=== PATIENT | female | born 1985 | race Caucasian/White ===

== ENCOUNTER 2019-04-01 06:57 | Emergency (ER) | payer OTHER ==
[2019-04-01] MEDS ORDERED: cefTRIAXone VIAL(*) 1,000 MG VIAL IM ONE (07:13)
[2019-04-01] MEDS ORDERED: Lidocaine 1% MPF ** 5 ML VIAL IM ONE (07:13)
[2019-04-01] MEDS ORDERED: Dexamethasone IV* 4 MG/ML 1 ML (4 MG) IM ONE (07:14)
--- NOTE | 2019-04-01 07:17 | ED ---
Throat Pain/Nasal Congestion - HPI Summary HPI Summary: This pt is a 33 y/o [place] [facility] [place]. She reports she was weak vocal cords if she talks a lot and was at [employer] over the weekend talking a lot to her friends. Pt states she went to Urgent Care yesterday where she tested positive for strep throat and was started on Amoxicillin 875 mg twice a day. She has taken 2 doses so far with no improvement. She reports she has right sided neck swelling and feels swelling in her throat. Pt states she kept waking up at night choking up on phlegm secondary to swelling. Additionally she has been having difficulty swallowing pills secondary to pain. Pt notes she has jaw pain as well. Per triage note, pt has been running a fever at home and has had body aches. Denies nausea of vomiting. She has hx of peritonsillar abscess and states current symptoms feel like this is starting. Last time she had peritonsillar abscess she was not diagnosed with strep throat. Pt reports she still has a baby and is still nursing. - History of Current Complaint Chief Complaint: EDThroatPain Time Seen by Provider: 04/01/19 07:05 Hx Obtained From: Patient Onset/Duration: Lasting Days, Still Present Severity: Moderate Associated Signs And Symptoms: Positive: Dysphagia Cough: None Related History: Other (Noted In Comments) - similar symptoms to past peritonsillar abscess - Allergies/Home Medications Allergies/Adverse Reactions: Allergies Allergy/AdvReac Type Severity Reaction Status Date / Time No Known Allergies Allergy Verified 07/11/13 11:38 PMH/Surg Hx/FS Hx/Imm Hx Endocrine/Hematology History: Denies: Hx Diabetes Cardiovascular History: Denies: Hx Hypertension Infectious Disease History: No Infectious Disease History: Denies: Traveled Outside the [place] in Last 30 Days - Family History Known Family History: Positive: Hypertension - mother Family History: father with lung CA - Social History Alcohol Use: Occasionally Substance Use Type: Reports: None Smoking Status (MU): Never Smoked Tobacco Review of Systems Positive: Fever - at home ENT: Other - POSITIVE: jaw pain, swelling in her throat, swelling on right side of neck. Positive: Sore Throat Negative: Vomiting, Nausea Positive: Myalgia All Other Systems Reviewed And Are Negative: Yes Physical Exam - Summary Physical Exam Summary: Constitutional: Well-developed, Well-nourished, Alert. (-) Distressed Skin: Warm, Dry HENT: Normocephalic; Atraumatic. She has right anterior cervical lymphadenopathy that is tender. She has peritonsillar edema. It does not affect the uvula, the uvula has not moved passed the midline. The left side is normal. Patient is able to maintain her secretions and is able to swallow her secretions. She does not have hot potato voice or muffled voice. Eyes: Conjunctiva normal Neck: Musculoskeletal ROM normal neck. (-) JVD, (-) Stridor, (-) Tracheal deviation Cardio: Rhythm regular, rate normal, Heart sounds normal; Intact distal pulses; The pedal pulses are 2+ and symmetric. Radial pulses are 2+ and symmetric. (-) Murmur Pulmonary/Chest wall: Effort normal. (-) Respiratory distress, (-) Wheezes, (-) Rales Abd: Soft, (-) tenderness, (-) Distension, (-) Guarding, (-) Rebound Musculoskeletal: (-) Edema Lymph: (-) Cervical adenopathy Neuro: Alert, Oriented x3 Psych: Mood and affect Normal Triage Information Reviewed: Yes Vital Signs On Initial Exam: Initial Vitals Temp Pulse Resp BP Pulse Ox 97.5 F 86 18 138/83 96 04/01/19 07:00 04/01/19 07:00 04/01/19 07:00 04/01/19 07:00 04/01/19 07:00 Vital Signs Reviewed: Yes Diagnostics - Vital Signs Vital Signs Temp Pulse Resp BP Pulse Ox 04/01/19 07:00 97.5 F 86 18 138/83 96 - Laboratory Lab Statement: Any lab studies that have been ordered have been reviewed, and results considered in the medical decision making process. Re-Evaluation - Re-Evaluation First Eval Re-Evaluation Time: 07:45 Comment: Reviewed discharge plan and follow up with Dr. Stovall. Discussed new medication prescribed. EENT Course/Dx - Course Assessment/Plan: Pt is a 33 y/o female, with hx of peritonsillar abscess, presenting to [facility] c/o sore throat since 03/29/19. Pt states she went to Urgent Care yesterday where she tested positive for strep throat and was started on Amoxicillin 875 mg twice a day. She has taken 2 doses so far with no improvement. On physical exam, pt has right anterior cervical lymphadenopathy that is tender. She has peritonsillar edema. It does not affect the uvula, the uvula has not moved passed the midline. The left side is normal. Patient is able to maintain her secretions and is able to swallow her secretions. She does not have hot potato voice or muffled voice. In the ED course the pt received 1 gram IM of Rocephin, 10 mg IM Decadron, lidocaine. Discussed the case with Dr. Stovall, ENT, who will see the patient in his office on Tuesday 04/03 or 04/04. Patient was discharged home with a prescription for Augmentin. - Diagnoses Provider Diagnoses: Peritonsillar abscess, Strep throat - Provider Notifications Discussed Care Of Patient With: Xavier Stovall - ENT Time Discussed With Above Provider: 07:22 Instructed by Provider To: Other - Dr. Stovall will see the patient in his office Monday or . Discharge - Sign-Out/Discharge Documenting (check all that apply): Patient Departure - Discharge home Patient Received Moderate/Deep Sedation with Procedure: No - Discharge Plan Condition: Stable Disposition: HOME Prescriptions: Amoxicillin/Clavulanate TAB* [Augmentin TAB 875*] 875 mg PO BID #20 tab Patient Education Materials: Peritonsillar Abscess (ED) Print Language: KYRGYZ Referrals: Eden Ac MD [Primary Care Provider] - Xavier Stovall MD [Medical Doctor] - - Billing Disposition and Condition Condition: STABLE Disposition: Home - Attestation Statements Document Initiated by Cristhianibe: Yes Documenting Scribe: Coni Hunter Provider For Whom Samuel is Documenting (Include Credential): Thuy Tirado MD Scribe Attestation: Coni Hernandez, scribed for Thuy Gtz MD on 04/01/19 at 0806. Scribe Documentation Reviewed: Yes Provider Attestation: The documentation as recorded by the Coni felipe accurately reflects the service I personally performed and the decisions made by me, Thuy Gtz MD Status of Scribe Document: Viewed
[2019-04-01 08:08] VITALS: BP 117/72
== END 2019-04-01 08:06 | disposition home or self-care (01) ==
LOC: ED 06:57
DX: J36 Peritonsillar abscess (principal); J02.0 Streptococcal pharyngitis
CPT/HCPCS: 96372; 99282; J0696; J1100

== ENCOUNTER 2019-04-02 15:08 | Inpatient (IN) | payer OTHER ==
[2019-04-02] MEDS ORDERED: Dexamethasone IV* 4 MG/ML 1 ML (4 MG) IV SLOW PU ONE (16:00)
[2019-04-02] MEDS ORDERED: Morphine INJ* 2 MG/ML 1 ML SYRINGE (TWO MG - NEW SYRINGE VERSION) IV PRN (16:49)
[2019-04-02] MEDS ORDERED: Ketorolac INJ* 15 MG/ML 1 ML VIAL IV PUSH PRN (16:49)
[2019-04-02] MEDS: NS 0.9% 1000 ML** 1,000 ML IV SCH (17:15)
[2019-04-02] MEDS: Clindamycin 600 MG IVPREMIX(* 600 MG/50 ML SDV IV SCH (17:46)
[2019-04-02 17:50] LABS: ABS Basophils 0.1 10^3/ul (0-0.2); ABS Monocytes 0.4 10^3/ul (0-0.8); ABS Neutrophils 7.6 10^3/ul (1.5-7.7); Eosinophil % 0.3 %; Hematocrit 33 % (35-47); Hemoglobin 11.4 g/dL (12.0-16.0); Lymphocyte % 10.5 %; Mean Corpuscular HGB Conc 35 g/dL (31-36); Mean Corpuscular Hemoglobin 32 pg (27-31); Mean Corpuscular Volume 92 fL (80-97); Mean Platelet Volume 8.6 fL (7.4-10.4); Platelet Count 158 10^3/uL (150-450); Red Blood Count 3.59 10^6 /uL (3.70-4.87); Red Cell Distribution Width 13 % (10-15); White Blood Count 9.1 10^3/uL (3.5-10.8)
[2019-04-02 18:08] LABS: Albumin 3.6 g/dL (3.2-5.2); Albumin/Globulin Ratio 1.2 (1-3); BUN/Creatinine Ratio 12.1 (8-20); C Reactive Protein 113.11 mg/L (<8.01); Calcium 8.8 mg/dL (8.6-10.3); EGFR African American 143.1 (>60); EGFR Non-African American 118.3 (>60); Globulin 2.9 g/dL (2-4); Potassium 2.9 mmol/L (3.5-5.0); Total Bilirubin 0.3 mg/dL (0.2-1.0); Total Protein 6.5 g/dL (6.4-8.9)
[2019-04-02] MEDS ORDERED: Iohexol 300* (CONTRAST) 10 ML SDV IV ONE (18:12)
[2019-04-02 18:14] LABS: HCG Pregnancy 13.56 mIU/mL
--- NOTE | 2019-04-02 18:22 | HP ---
CC: Dr. Eden Encinas; Dr. Xavier Stovall * HISTORY AND PHYSICAL: DATE OF ADMISSION: 04/02/19 TIME OF EVALUATION: 4:30 p.m. PRIMARY CARE PROVIDER: Dr. Eden Encinas. CONSULTING ENT: Dr. Xavier Stovall. CHIEF COMPLAINT: "My throat hurts." HISTORY OF PRESENT ILLNESS: Ms. Alicia is a 33-year-old healthy lady who was sent from Dr. Stovall's office for direct admission due to a possible peritonsillar abscess. The patient states she was in her usual state of health until on 03/29/19, she started to have some right-sided throat pain. She describes having a peritonsillar abscess about 10 years ago and she thought maybe she was coming down with something, so she started to take ibuprofen. Initially, she had some improvement of her symptoms; but, over the weekend, it progressed, associated with fever, malaise and pain when swallowing. She initially went to urgent care and she was prescribed amoxicillin. There is a report that she tested positive for a strep. She went home and states that the symptoms continued and on 04/01/19, she came to the emergency room where she received intramuscular ceftriaxone and dexamethasone and she states that after that she had significant improvement. She was able to swallow, she was able to eat, and she woke up around 4 a.m. and did not feel she needed to take another dose of ibuprofen, but later that day when she woke up, she saw that the swelling was worse, the pain was much worse and now she had redness on the right side of her neck starting to extend down to her chest. She already had an appointment scheduled with ENT for tomorrow and she called and requested to be seen sooner, so she went to see Dr. Stovall today. On his physical examination, he noted posterior pharynx showing bulging of the right anterior tonsillar pillar with medialization of the tonsil. He attempted incision and drainage of a peritonsillar abscess, but did not localize an abscess cavity. He also noted erythema of the right neck skin with a 2 cm right mass in the lower jugular chain and he contacted me to make arrangements for the patient to be directly admitted for further management. At the time of my interview, the patient states that the pain is still present, although not as severe as it was earlier today. The patient denies chest pain, palpitations, shortness of breath, cough, nausea, vomiting, diarrhea, or urinary complaints. PAST MEDICAL HISTORY: Episode of peritonsillar abscess 10 years ago. The patient states that she was treated just with antibiotics, did not require surgery. MEDICATION LIST: The patient is on amoxicillin 875 mg p.o. b.i.d. ALLERGIES: No known drug allergies. FAMILY HISTORY: Her father was a smoker and of lung cancer. There is history of stroke and coronary artery disease in grandparents and one of them of bladder cancer, he was also a smoker. SOCIAL HISTORY: She states that she drinks occasionally. She was a smoker 1 pack per day until age 23. Denies any recent drug use. 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 Surrogate decision maker is her mother, Kamryn Alicia, phone number is [phone]. REVIEW OF SYSTEMS: A 14-point review of systems was performed and all the pertinent negative and positive findings are in the HPI. PHYSICAL EXAMINATION GENERAL: The patient is a pleasant, young lady, sitting up in bed, in no acute distress. VITAL SIGNS: Temperature 98.2, heart rate is 88, respiratory rate is 16, oxygen saturation is 100% on room air, blood pressure is 130/91. HEENT: Pupils are equal. Moist mucous membranes. The patient has erythema of the skin on the right side of the neck with palpable lymph nodes in the lower jugular chain. There is tenderness on palpation of the area. I am unable to visualize the oropharynx at this point as the patient states that it hurts to open her mouth, but I have documented Dr. Stovall's findings in the HPI. There is no stridor. CHEST: Breath sounds present bilaterally with no added sounds. CVS: Normal S1, S2. Regular rate and rhythm. ABDOMEN: Soft, nontender. Bowel sounds are present. EXTREMITIES: No edema. NEURO: She is alert, oriented x3. Able to move all 4 extremities. LABORATORY DATA: No laboratory tests are available at this time. ASSESSMENT AND PLAN: Ms. Alicia is a 33-year-old lady with no significant past medical history, who was sent for direct admission for a peritonsillar abscess. 1. Peritonsillar abscess. The patient will be admitted to the medical floor as an inpatient as she has failed multiple outpatient therapies and we will follow Dr. Stovall's recommendation. The plan is for her to have a CT of the soft tissue neck with contrast to localize any drainable collection or any other issues. We will treat her with clindamycin, penicillin, and dexamethasone as discussed on our prior phone call. She will also receive symptomatic treatment for pain. She will have a clear liquid diet as tolerated after her CT is done and depending on the findings, she may need I and D done in the OR. 2. DVT prophylaxis: The patient has a score of 0 on the DVT Prophylaxis Risk Assessment Guide and we are going to encourage ambulation. 3. Code status is full. TIME SPENT: Approximately 50 minutes was spent with the patient's interview, medical records review, physical examination to complete this admission, more than of half this time was spent [id number] with the patient and coordination of care. [id number]/[facility] #: [id number] MTDEmery
[2019-04-02] MEDS: Penicillin G Potassium IV* 4,000,000 UNITS in NS 0.9% 100 ML* 100 ML IVPB SCH ×2 (18:46→22:10)
[2019-04-02] MEDS: Acetaminophen ADULT LIQ* 650 MG/20.3 ML UDC PO PRN (19:46)
--- NOTE | 2019-04-02 20:10 | PN ---
Hospitalist Progress Note Date of Service: 04/02/[address] neck reviewed and d/w Dr Stovall. He's aware of the moderate airway narrowing and 2cm right lobe thyroid nodule, as well as peritonsillar abscess. He recommends continuation of current therapy with abx and steroids; he'll look at the study and make further recommendations as needed. As she has no signs of respiratory compromise, no stridor, there is no indication for transfer to ICU at this time. Signed out to bravo.
[2019-04-02 21:53] LABS: T4, Total 7.54 mcg/dL (6.09-12.23)
[2019-04-02 21:56] LABS: TSH (Thyroid Stimulating Horm) 0.85 mcIU/mL (0.34-5.60)
[2019-04-03] MEDS: Dexamethasone IV* 4 MG/ML 1 ML (4 MG) IV SLOW PU SCH ×3 (00:13→16:51)
[2019-04-03] MEDS: Clindamycin 600 MG IVPREMIX(* 600 MG/50 ML SDV IV SCH ×4 (00:13→17:31)
[2019-04-03] MEDS: Acetaminophen ADULT LIQ* 650 MG/20.3 ML UDC PO PRN (01:13)
[2019-04-03] MEDS: Penicillin G Potassium IV* 4,000,000 UNITS in NS 0.9% 100 ML* 100 ML IVPB SCH ×6 (02:46→22:35)
[2019-04-03] MEDS: NS 0.9% 1000 ML** 1,000 ML IV SCH ×2 (08:10→21:58)
[2019-04-03] MEDS ORDERED: KCL 20 MEQ/100 ML IVPREMIX* 20 MEQ/100 ML BAG IV SCH (11:00)
[2019-04-03 11:09] LABS: Magnesium 1.9 mg/dL (1.9-2.7); Potassium 4.1 mmol/L (3.5-5.0)
[2019-04-03 11:14] LABS: BUN/Creatinine Ratio 13.6 (8-20); EGFR African American 140.4 (>60)
--- NOTE | 2019-04-03 11:18 | PN ---
PROGRESS NOTE: DATE OF SERVICE: 04/03/19 HISTORY: I had sent the patient over from my office for a direct admission because of a right peritonsillar abscess that I was not able to find on aspiration and she had been on Augmentin and seemed to be progressing. She was put on intravenous clindamycin, penicillin, and Decadron, and a CT scan was obtained. Last evening, after the CT scan, which I reviewed, it confirmed the right peritonsillar abscess, but it also showed an enlarged thyroid with goiter and thyromegaly, with tracheal deviation. I spoke to Dr. Conn about this, who will later consult and order thyroid studies. I also talked to the hospitalist , Dr. Miranda. This morning, the patient says she is feeling better. She is having decrease in pain. She is still having some trismus, but overall is feeling better. PHYSICAL EXAMINATION: On physical examination, she still has some erythema of her right anterior tonsillar pillar and you can see where I inserted my needles , but there is not as much bulging and there is not as much medialization of the tonsil. Her neck is soft. There is slightly less erythema of her skin and you still feel the masses in the lower neck, which, in the office, I thought might be evolving abscess, but on CT scan turns out to be the goiter. LABORATORY DATA: Labs relevant to me showed a TSH of 0.85, thyroxine of 7.54, total T3 of 76, which is low, the rest of her thyroid studies are normal. Her white blood cell count was 9.1 upon admission, with no shifting. ASSESSMENT: 1. The patient has a peritonsillar abscess that is responding to the intravenous antibiotics and steroids. Recommendation at this point is that we continue medical management. Many of these will resolve without surgical management and, at this point, probably 48 to 72 hours of intravenous antibiotics, being sent home on the equivalent oral medications. 2. Thyroid goiter and low T3. I added antithyroid antibodies to her blood work and, as I said, I spoke with Dr. Conn last night who will consult. [id number]/[facility] #: [id number] MTDD
[2019-04-03 11:34] LABS: Thyroid Peroxidase Antibodies 51.84 IU/mL (<9)
[2019-04-03 11:44] LABS: Thyroglobulin Antibody II 0.1 IU/mL (<4.0)
--- NOTE | 2019-04-03 13:21 | CONSULT ---
Consult Consult: [facility] Inpatient Consult Note Date of Consult: 04/03/19 Reason for Consult: non-toxic multinodular goiter Reason for Admission: RIGHT peritonsillar abscess ASSESSMENT: 33 yo F with history of strep pharyngitis, now admitted for IV antibiotic therapy for peritonsillar abscess and cervical adenitis. She has improved clinically with IV steroids and antibiotics. Her CT scan shows large LEFT thyroid nodule that is causing obstructive dysphagia and tracheal deviation , along with at least one cyst on the RIGHT. There is no evidence of infectious thyroiditis. Her thyroid function tests are normal, excluding the possbility of toxic MNG; presence of TPO antibody is consistent with autoimmune thyroiditis and family history. To exclude possibility of thyroid cancer, she will almost certainly need biopsy of dominant nodule on the LEFT side. Due to obstructive symptoms, she is a candidate for elective thyroidectomy after her infectious disease improves. PLAN: - thyroid ultrasound this admission - refer to thyroid nodule clinic for biopsy of dominant nodule(s) - follow-up with endocrine in 4 weeks SUBJECTIVE: History of Present Illness: 33 yo F with no significant PMH, now admitted for R peritonsillar abscess. She was diagnosed with acute strep pharyngitis on 03/31/19 , unresponsive to IV/PO antibiotics, then presenting with worsening R neck redness and pain to Dr. Stovall (ENT) on 04/02/19. She reports inability to swallow with both odynophagia and dysphagia for the past several days. Prior to this, she reports "lump in throat" sensation for several months. No dysphonia. No thyroid symptoms: temp intolerance, palpitations, tremor, weight changes. Past Medical History: Peritonsillar abscess in ~2008. Medications Prior to Admission: Augmentin. Inpatient Medications: Acetaminophen (Tylenol Adult Liq*) 650 mg PO Q4H PRN PRN Reason: Mild pain/Fever>100.4 Last Admin: 04/03/19 01:13 Dose: 650 mg Dexamethasone Sodium Phosphate (Decadron Iv*) 8 mg IV SLOW PU Q8H SONYA Last Admin: 04/03/19 08:10 Dose: 8 mg Sodium Chloride (Ns 0.9% 1000 Ml) 1,000 mls @ 100 mls/hr IV PER RATE SONYA Last Admin: 04/03/19 08:10 Dose: 100 mls/hr Clindamycin HCl/Dextrose (Cleocin 600 Mg Ivpremix(*) Sdv) 600 mg in 50 mls @ 100 mls/hr IV Q6H [facility] Last Admin: 04/03/19 12:00 Dose: 100 mls/hr Penicillin G Potassium 4,000, (000 units/ Sodium Chloride) 100 mls @ 200 mls/ hr IVPB Q4H [facility] Last Admin: 04/03/19 11:15 Dose: 200 mls/hr Ketorolac Tromethamine (Toradol Inj*) 15 mg IV PUSH Q6H PRN PRN Reason: Moderate pain Morphine Sulfate (Morphine Inj (Syringe))*) 1 mg IV Q2H PRN PRN Reason: SEVERE PAIN Allergies/Intolerances: NKDA Social History: Two sons. 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 Family History: Multiple first and second relatives with thyroid disease on father's side. Review of Systems: As above. See admission note for details. OBJECTIVE: Temp Pulse Resp BP Pulse Ox 97.9 F 64 17 143/68 99 04/03/19 11:09 04/03/19 11:09 04/03/19 11:09 04/03/19 11:09 04/03/19 11:09 General: alert, pleasant, oriented, no distress ENT: neck supple, minimal redness, no tenderness, non-tender thyroid with firm nodule on LEFT and soft nodule on the RIGHT Chest: CTAB, no wheezing or crackles CV: RRR, no murmur Abdomen: soft, non-tender Extremities: no edema, distal pulses intact Skin: warm, dry, no rash Neuro: grossly intact motor/sensory in extremities Psych: restricted affect, pleasant Labs: WBC 9.1 10^3/uL (3.5-10.8) 04/02/19 17:32 RBC 3.59 10^6 /uL (3.70-4.87) L 04/02/19 17:32 Hgb 11.4 g/dL (12.0-16.0) L 04/02/19 17:32 Hct 33 % (35-47) L 04/02/19 17:32 MCV 92 fL (80-97) 04/02/19 17:32 MCH 32 pg (27-31) H 04/02/19 17:32 MCHC 35 g/dL (31-36) 04/02/19 17:32 RDW 13 % (10-15) 04/02/19 17:32 Plt Count 158 10^3/uL (150-450) 04/02/19 17:32 MPV 8.6 fL (7.4-10.4) 04/02/19 17:32 Neut % (Auto) 83.7 % 04/02/19 17:32 Lymph % (Auto) 10.5 % 04/02/19 17:32 Carter % (Auto) 4.9 % 04/02/19 17:32 Eos % (Auto) 0.3 % 04/02/19 17:32 Baso % (Auto) 0.6 % 04/02/19 17:32 Absolute Neuts (auto) 7.6 10^3/ul (1.5-7.7) 04/02/19 17:32 Absolute Lymphs (auto) 1.0 10^3/ul (1.0-4.8) 04/02/19 17:32 Absolute Monos (auto) 0.4 10^3/ul (0-0.8) 04/02/19 17:32 Absolute Eos (auto) 0.0 10^3/ul (0-0.6) 04/02/19 17:32 Absolute Basos (auto) 0.1 10^3/ul (0-0.2) 04/02/19 17:32 Absolute Nucleated RBC 0.0 10^3/ul 04/02/19 17:32 Nucleated RBC % 0.0 04/02/19 17:32 Sodium 140 mmol/L (135-145) 04/03/19 10:32 Potassium 4.1 mmol/L (3.5-5.0) 04/03/19 10:32 Chloride 109 mmol/L (101-111) 04/03/19 10:32 Carbon Dioxide 21 mmol/L (22-32) L 04/03/19 10:32 Anion Gap 10 mmol/L (2-11) 04/03/19 10:32 BUN 8 mg/dL (6-24) 04/03/19 10:32 Creatinine 0.59 mg/dL (0.51-0.95) 04/03/19 10:32 Est GFR ( Amer) 140.4 (>60) 04/03/19 10:32 Est GFR (Non-Af Amer) 116.0 (>60) 04/03/19 10:32 BUN/Creatinine Ratio 13.6 (8-20) 04/03/19 10:32 Glucose 200 mg/dL (70-100) H 04/03/19 10:32 Lactic Acid 0.9 mmol/L (0.5-2.0) 04/02/19 17:32 Calcium 9.0 mg/dL (8.6-10.3) 04/03/19 10:32 Magnesium 1.9 mg/dL (1.9-2.7) 04/03/19 10:32 Total Bilirubin 0.30 mg/dL (0.2-1.0) 04/02/19 17:32 AST 14 U/L (13-39) 04/02/19 17:32 ALT 14 U/L (7-52) 04/02/19 17:32 Alkaline Phosphatase 59 U/L (34-104) 04/02/19 17:32 C-Reactive Protein 113.11 mg/L (<8.01) H 04/02/19 17:32 Total Protein 6.5 g/dL (6.4-8.9) 04/02/19 17:32 Albumin 3.6 g/dL (3.2-5.2) 04/02/19 17:32 Globulin 2.9 g/dL (2-4) 04/02/19 17:32 Albumin/Globulin Ratio 1.2 (1-3) 04/02/19 17:32 TSH 0.85 mcIU/mL (0.34-5.60) 04/02/19 17:32 Thyroxine (T4) 7.54 mcg/dL (6.09-12.23) 04/02/19 17:32 Total T3 76 ng/dL (87-178) L 04/02/19 17:32 Beta HCG, Quant 13.56 mIU/mL 04/02/19 17:32 Thyroglobulin Antibody 0.1 IU/mL (<4.0) 04/03/19 10:12 Thyroid Peroxidase Ab 51.84 IU/mL (<9) H 04/03/19 10:12
--- NOTE | 2019-04-03 14:22 | PN ---
<Shira Lal - Last Filed: 04/03/19 14:13> Subjective Date of Service: 04/03/19 Interval History: Patient is improving but she complains of Pain on right mandibular area and lower neck and pain during swallowing. She also feels a lump in her neck during Swallowing. She has a rash on her right jaw and lower neck. She has no any fever , chills, diarrhea, difficulty in breathing. Objective Active Medications: Acetaminophen (Tylenol Adult Liq*) 650 mg PO Q4H PRN PRN Reason: Mild pain/Fever>100.4 Last Admin: 04/03/19 01:13 Dose: 650 mg Dexamethasone Sodium Phosphate (Decadron Iv*) 8 mg IV SLOW PU Q8H [facility] Last Admin: 04/03/19 08:10 Dose: 8 mg Sodium Chloride (Ns 0.9% 1000 Ml) 1,000 mls @ 100 mls/hr IV PER RATE [facility] Last Admin: 04/03/19 08:10 Dose: 100 mls/hr Clindamycin HCl/Dextrose (Cleocin 600 Mg Ivpremix(*) Sdv) 600 mg in 50 mls @ 100 mls/hr IV Q6H [facility] Last Admin: 04/03/19 12:00 Dose: 100 mls/hr Penicillin G Potassium 4,000, (000 units/ Sodium Chloride) 100 mls @ 200 mls/ hr IVPB Q4H [facility] Last Admin: 04/03/19 11:15 Dose: 200 mls/hr Ketorolac Tromethamine (Toradol Inj*) 15 mg IV PUSH Q6H PRN PRN Reason: Moderate pain Morphine Sulfate (Morphine Inj (Syringe))*) 1 mg IV Q2H PRN PRN Reason: SEVERE PAIN Vital Signs - 8 hr 04/03/19 04/03/19 04/03/19 07:25 08:00 11:09 Temperature 98.0 F 97.9 F Pulse Rate 60 64 Respiratory 17 18 17 Rate Blood Pressure 127/73 143/68 (mmHg) O2 Sat by Pulse 100 99 Oximetry Oxygen Devices in Use Now: None Exam: Patient is sitting on a bed. HEENT: There is erythema over right anterior tonsillar pillar with no any pus point. Trismus present. Neck: Reactive Jugulodigastric lymph node: Palpable and tender. Redness on lower neck on midline. Soft lump palpated which is tender. Heart: Normal heart sound heard with no any murmur. Chest: Normal vesicular sound heard. Abdomen: Soft, Nontender and normal bowel sound heard. Neuro: Alert, conscious and oriented. Extremities: Normal Result Diagrams: 04/02/19 17:32 04/03/19 10:32 Assess/Plan/Problems-Billing Assessment: 33 y/o F with PMH of Peritonsillar abscess presented with Right sided throat pain, fever, redness over neck and lower right cheek and odynphagia with Streptococcal Pharyngitis(on augmentin). Found to have Right Peritonsillar abscess. Unsucessfull attempts of drainage on clinic. CT Neck confirmed peritonsillar abscess and enlarged thyroid with multiple nodule. - Patient Problems (1) Peritonsillar abscess Current Visit: Yes Status: Acute Code(s): J36 - PERITONSILLAR ABSCESS SNOMED Code(s): 72109152 Comment: Suggested by history and examination. Confirmed by CT. Patient is on IV antibiotics and is improving. Monitor for any worsening symptoms. If improves and has no pain during swallowing can swith to oral antibiotics. (2) Strep pharyngitis Current Visit: Yes Status: Acute Code(s): J02.0 - STREPTOCOCCAL PHARYNGITIS SNOMED Code(s): 46428024 Comment: Sore throat and odynophagia. Tested positive. She is on antibiotic. (3) Goiter Current Visit: Yes Status: Acute Code(s): E04.9 - NONTOXIC GOITER, UNSPECIFIED SNOMED Code(s): 3990697 Comment: Nodular. suggested by physical exam and confirmed by CT. Low total t3 and Anti-TPO is positive. Endocrinology consulted. Plan- F/U with US Thyroid. May need biopsy in clinic and f/u. (4) DVT prophylaxis Current Visit: Yes Status: Acute Code(s): Z29.9 - ENCOUNTER FOR PROPHYLACTIC MEASURES, UNSPECIFIED SNOMED Code(s): 210521724 Comment: Encourage ambulation. (5) Full code status Current Visit: Yes Status: Acute Code(s): Z78.9 - OTHER SPECIFIED HEALTH STATUS SNOMED Code(s): 357516856 Status and Disposition: Medicine inpatient Attending: Coni Kapoor <Coni Kapoor - Last Filed: 04/04/19 15:17> Objective Active Medications: Acetaminophen (Tylenol Adult Liq*) 650 mg PO Q4H PRN PRN Reason: Mild pain/Fever>100.4 Last Admin: 04/03/19 01:13 Dose: 650 mg Dexamethasone Sodium Phosphate (Decadron Iv*) 8 mg IV SLOW PU Q8H [facility] Last Admin: 04/04/19 08:31 Dose: 8 mg Sodium Chloride (Ns 0.9% 1000 Ml) 1,000 mls @ 100 mls/hr IV PER RATE [facility] Last Admin: 04/03/19 21:58 Dose: 100 mls/hr Clindamycin HCl/Dextrose (Cleocin 600 Mg Ivpremix(*) Sdv) 600 mg in 50 mls @ 100 mls/hr IV Q6H [facility] Last Admin: 04/04/19 12:28 Dose: 100 mls/hr Penicillin G Potassium 4,000, (000 units/ Sodium Chloride) 100 mls @ 200 mls/ hr IVPB Q4H [facility] Last Admin: 04/04/19 13:57 Dose: 200 mls/hr Ketorolac Tromethamine (Toradol Inj*) 15 mg IV PUSH Q6H PRN PRN Reason: Moderate pain Morphine Sulfate (Morphine Inj (Syringe))*) 1 mg IV Q2H PRN PRN Reason: SEVERE PAIN Vital Signs - 8 hr 04/04/19 04/04/19 04/04/19 07:00 08:00 11:00 Temperature 97.5 F 98.3 F Pulse Rate 68 57 Respiratory 18 18 16 Rate Blood Pressure 126/78 125/82 (mmHg) O2 Sat by Pulse 99 Oximetry Result Diagrams: 04/02/19 17:32 04/03/19 10:32 Assess/Plan/Problems-Billing Admitted yesterday. Reports significant improvement in neck and R-sided jaw pain. Now feels mild pain in anterior neck and right jaw, not worse on swallowing, with feeling of lump in her throat when swallowing but better than before. afeb, vss well appearing, friendly, alert and interactive R tonsil swollen and erythematous significant erythema over front and R neck, up to R mandible neck supple thyroid mildly enlarged with b/l nodules rrr no mgr ctab soft ntnd no LE edema A/P 33W healthy presents with strep pharyngitis c/b R peritonsillar abscess, unable to be drained in clinic, now improving significantly on IV antibiotics and steroids. # Strep pharyngitis c/b peritonsillar abscess - cont IV antibiotics for 24-48 more hours - cont steroids - appreciate ENT input # Goiter. - endo consult appreciated - will refer for thyroid FNA as outpatient Attestation Documenting Resident: Lukasz Supervising Physician: Antwon Attestation: This service has been performed in part by a resident under the direction of a teaching physician.IAntwon, performed the service, or was physically present during the critical, or polk portions of the service, furnished by the resident. I participated in the management of the patient.
[2019-04-04] MEDS: Clindamycin 600 MG IVPREMIX(* 600 MG/50 ML SDV IV SCH ×4 (00:11→17:42)
[2019-04-04] MEDS: Dexamethasone IV* 4 MG/ML 1 ML (4 MG) IV SLOW PU SCH ×2 (00:11→08:31)
[2019-04-04] MEDS: Penicillin G Potassium IV* 4,000,000 UNITS in NS 0.9% 100 ML* 100 ML IVPB SCH ×6 (02:20→22:30)
[2019-04-04] MEDS ORDERED: NS 0.9% 100 ML* 100 ML ONE (10:12)
--- NOTE | 2019-04-04 14:15 | PN ---
<Shira Lal - Last Filed: 04/04/19 14:09> Subjective Date of Service: 04/04/19 Interval History: Patient says her symptoms are decreasing but she still can feel lump in her neck during, pain in rt. mandibular region and difficulty in fully opening mouth. She is eating well. No fever, chills, difficulty in breathing. Objective Active Medications: Acetaminophen (Tylenol Adult Liq*) 650 mg PO Q4H PRN PRN Reason: Mild pain/Fever>100.4 Last Admin: 04/03/19 01:13 Dose: 650 mg Dexamethasone Sodium Phosphate (Decadron Iv*) 8 mg IV SLOW PU Q8H [facility] Last Admin: 04/04/19 08:31 Dose: 8 mg Sodium Chloride (Ns 0.9% 1000 Ml) 1,000 mls @ 100 mls/hr IV PER RATE [facility] Last Admin: 04/03/19 21:58 Dose: 100 mls/hr Clindamycin HCl/Dextrose (Cleocin 600 Mg Ivpremix(*) Sdv) 600 mg in 50 mls @ 100 mls/hr IV Q6H [facility] Last Admin: 04/04/19 12:28 Dose: 100 mls/hr Penicillin G Potassium 4,000, (000 units/ Sodium Chloride) 100 mls @ 200 mls/ hr IVPB Q4H [facility] Last Admin: 04/04/19 13:57 Dose: 200 mls/hr Ketorolac Tromethamine (Toradol Inj*) 15 mg IV PUSH Q6H PRN PRN Reason: Moderate pain Morphine Sulfate (Morphine Inj (Syringe))*) 1 mg IV Q2H PRN PRN Reason: SEVERE PAIN Vital Signs - 8 hr 04/04/19 04/04/19 04/04/19 07:00 08:00 11:00 Temperature 97.5 F 98.3 F Pulse Rate 68 57 Respiratory 18 18 16 Rate Blood Pressure 126/78 125/82 (mmHg) O2 Sat by Pulse 99 Oximetry Oxygen Devices in Use Now: None Exam: Patient is sitting on a bed. HEENT: There is erythema over right anterior tonsillar pillar with no any pus point. Trismus present. Neck: Reactive Jugulodigastric lymph node: Palpable and tender. Soft lump palpated which is tender. Heart: Normal heart sound heard with no any murmur. Chest: Normal vesicular sound heard. Abdomen: Soft, Nontender and normal bowel sound heard. Neuro: Alert, conscious and oriented. Extremities: Normal Result Diagrams: 04/02/19 17:32 04/03/19 10:32 Assess/Plan/Problems-Billing Assessment: 33 y/o F with PMH of Peritonsillar abscess presented with Right sided throat pain, fever, redness over neck and lower right cheek and odynphagia with Streptococcal Pharyngitis(on augmentin). Found to have Right Peritonsillar abscess. Unsucessfull attempts of drainage on clinic. CT Neck confirmed peritonsillar abscess and enlarged thyroid with multiple nodule. - Patient Problems (1) Peritonsillar abscess Current Visit: Yes Status: Acute Code(s): J36 - PERITONSILLAR ABSCESS SNOMED Code(s): 93833968 Comment: Suggested by history and examination. Confirmed by CT. Patient is on IV antibiotics(started on 04/02) and is improving. Monitor for any worsening symptoms. Dr. Stovall consulted and wants to continue Abx till tomorrow. (2) Strep pharyngitis Current Visit: Yes Status: Acute Code(s): J02.0 - STREPTOCOCCAL PHARYNGITIS SNOMED Code(s): 38812152 Comment: Sore throat and odynophagia. Tested positive. She is on antibiotic. (3) Goiter Current Visit: Yes Status: Acute Code(s): E04.9 - NONTOXIC GOITER, UNSPECIFIED SNOMED Code(s): 3224920 Comment: Nodular. suggested by physical exam and confirmed by CT. Low total t3 and Anti-TPO is positive. Endocrinology consulted. US thyroid done. Plan to do FNAC in thyroid clinic and f/u endo clinic in 4 weeks. (4) DVT prophylaxis Current Visit: Yes Status: Acute Code(s): Z29.9 - ENCOUNTER FOR PROPHYLACTIC MEASURES, UNSPECIFIED SNOMED Code(s): 294964356 Comment: Encourage ambulation. (5) Full code status Current Visit: Yes Status: Acute Code(s): Z78.9 - OTHER SPECIFIED HEALTH STATUS SNOMED Code(s): 450915849 Status and Disposition: Medicine inpatient Attending: Coni Kapoor <Coni Kapoor - Last Filed: 04/04/19 15:22> Objective Active Medications: Acetaminophen (Tylenol Adult Liq*) 650 mg PO Q4H PRN PRN Reason: Mild pain/Fever>100.4 Last Admin: 04/03/19 01:13 Dose: 650 mg Dexamethasone (Decadron Tab*) 8 mg PO DAILY [facility] Stop: 04/07/19 09:01 Sodium Chloride (Ns 0.9% 1000 Ml) 1,000 mls @ 100 mls/hr IV PER RATE [facility] Last Admin: 04/03/19 21:58 Dose: 100 mls/hr Clindamycin HCl/Dextrose (Cleocin 600 Mg Ivpremix(*) Sdv) 600 mg in 50 mls @ 100 mls/hr IV Q6H [facility] Last Admin: 04/04/19 12:28 Dose: 100 mls/hr Penicillin G Potassium 4,000, (000 units/ Sodium Chloride) 100 mls @ 200 mls/ hr IVPB Q4H [facility] Last Admin: 04/04/19 13:57 Dose: 200 mls/hr Ketorolac Tromethamine (Toradol Inj*) 15 mg IV PUSH Q6H PRN PRN Reason: Moderate pain Morphine Sulfate (Morphine Inj (Syringe))*) 1 mg IV Q2H PRN PRN Reason: SEVERE PAIN Vital Signs - 8 hr 04/04/19 04/04/19 08:00 11:00 Temperature 98.3 F Pulse Rate 57 Respiratory 18 16 Rate Blood Pressure 125/82 (mmHg) Result Diagrams: 04/02/19 17:32 04/03/19 10:32 Assess/Plan/Problems-Billing Slight improvement in neck and R-sided jaw pain. Still with feeling of lump in her throat when swallowing but better than before. afeb, vss well appearing, friendly, alert and interactive R tonsil swollen and erythematous significantly improved erythema over front and R neck, up to R mandible neck supple thyroid mildly enlarged with b/l nodules rrr no mgr ctab soft ntnd no LE edema A/P 33W healthy presents with strep pharyngitis c/b R peritonsillar abscess, unable to be drained in clinic, now improving significantly on IV antibiotics and steroids. # Strep pharyngitis c/b peritonsillar abscess - cont IV antibiotics for 24-48 more hours; clinda (04/02 - ) - cont steroids; will switch to PO for tomorrow for 5 days total (last day: 04/07 ) - appreciate ENT input # Goiter. - endo consult appreciated - will refer for thyroid FNA as outpatient Attestation Documenting Resident: Lukasz Supervising Physician: Antwon Attestation: This service has been performed in part by a resident under the direction of a teaching physician.IAntwon, performed the service, or was physically present during the critical, or polk portions of the service, furnished by the resident. I participated in the management of the patient.
--- NOTE | 2019-04-04 21:41 | PN ---
CONTINUATION ADDENDUM NOW INCLUDED ON THIS REPORT PROGRESS NOTE: DATE OF SERVICE: 04/04/19 HISTORY: The patient says she is doing well. She still feels some tight in her throat and now that she knows she has a large thyroid is feeling that lump in her throat. She states she has felt that for a while, but did not realize what it is. Her throat has stabilized and she is feeling pretty good about this. She has talked to the transportation specialist and has a schedule for breast- feeding her baby around the antibiotics and steroids. I previously spoke to the new international trade teacher about the probability of keeping her through tonight for IV antibiotics and then switching her over to the oral forms with a couple of days of oral steroids as well. PHYSICAL EXAMINATION: Oral cavity and oropharynx show that her right peritonsillar region has stabilized. I still see some bruising from the FNA that I performed, a little asymmetry, but much better than before. Her neck is soft without any lymphadenopathy and her thyroid is unchanged. LABORATORY DATA: Thyroid peroxidase antibody, which I had previously ordered is 51.84, which is high. Her thyroglobulin antibody is 0.1. ASSESSMENT AND PLAN: Assessment is that from an otolaryngologic standpoint and her peritonsillar abscess, the patient appears to be doing well. I think she will be okay for her discharge in the morning. CONTINUATION ADDENDUM: She is not to continue prednisone; she is to continue the penicillin and clindamycin and a couple more days of oral dexamethasone for swelling. She can follow up with me as an outpatient. She has followup with Dr. Conn for her thyroid disorder. [id number]/[facility] #: [id number] A- [id number]/[facility] #: [id number] KARSON
--- NOTE | 2019-04-04 21:41 | PN ---
PROGRESS NOTE: DATE OF SERVICE: ADDENDUM: She is not to continue prednisone, she is to continue the penicillin and clindamycin and a couple more days of oral dexamethasone for swelling. She can follow up with me as an outpatient. She has followup with Dr. Conn for her thyroid disorder. [id number]/[facility] #: [id number] K[place]SON
[2019-04-05] MEDS: Clindamycin 600 MG IVPREMIX(* 600 MG/50 ML SDV IV SCH ×4 (00:01→17:54)
[2019-04-05] MEDS: Acetaminophen ADULT LIQ* 650 MG/20.3 ML UDC PO PRN ×3 (00:09→20:55)
[2019-04-05] MEDS: NS 0.9% 1000 ML** 1,000 ML IV SCH ×2 (01:09→14:42)
[2019-04-05] MEDS: Penicillin G Potassium IV* 4,000,000 UNITS in NS 0.9% 100 ML* 100 ML IVPB SCH ×6 (02:24→22:29)
[2019-04-05] MEDS ORDERED: Dexamethasone TAB* 4 MG PO SCH (09:00)
[2019-04-05] MEDS ORDERED: predniSONE TAB* 20 MG PO SCH (09:00)
[2019-04-05 09:46] LABS: Hematocrit 33 % (35-47); Hemoglobin 11.5 g/dL (12.0-16.0); Mean Corpuscular HGB Conc 34 g/dL (31-36); Mean Corpuscular Hemoglobin 31 pg (27-31); Mean Corpuscular Volume 91 fL (80-97); Mean Platelet Volume 8.4 fL (7.4-10.4); Platelet Count 233 10^3/uL (150-450); Red Blood Count 3.68 10^6 /uL (3.70-4.87); Red Cell Distribution Width 12 % (10-15); White Blood Count 10.2 10^3/uL (3.5-10.8)
[2019-04-05 10:05] LABS: BUN/Creatinine Ratio 21.7 (8-20); Calcium 8.3 mg/dL (8.6-10.3); EGFR African American 137.7 (>60); EGFR Non-African American 113.8 (>60); Magnesium 1.7 mg/dL (1.9-2.7); Potassium 3.8 mmol/L (3.5-5.0)
[2019-04-05] MEDS ORDERED: Lidocaine 1% w EPI 1:200,000* 30 ML VIAL ONE (13:19)
[2019-04-05] MEDS ORDERED: Lidocaine 4% TOPICAL* 50 ML TOP.SOLN ONE (13:19)
--- NOTE | 2019-04-05 14:23 | PN ---
<Shira Lal - Last Filed: 04/05/19 14:18> Subjective Date of Service: 04/05/19 Interval History: She complains of increasing pain while swallowing and increased swelling on right mandibular area. She is concerned about her increasing pain and unable to pump her breast milk enough. ENT CONSULTATION DONE. Drainage of peritonsillar abscess done. Objective Active Medications: Acetaminophen (Tylenol Adult Liq*) 650 mg PO Q4H PRN PRN Reason: Mild pain/Fever>100.4 Last Admin: 04/05/19 06:32 Dose: 650 mg Sodium Chloride (Ns 0.9% 1000 Ml) 1,000 mls @ 100 mls/hr IV PER RATE [facility] Last Admin: 04/05/19 01:09 Dose: 100 mls/hr Clindamycin HCl/Dextrose (Cleocin 600 Mg Ivpremix(*) Sdv) 600 mg in 50 mls @ 100 mls/hr IV Q6H [facility] Last Admin: 04/05/19 12:03 Dose: 100 mls/hr Penicillin G Potassium 4,000, (000 units/ Sodium Chloride) 100 mls @ 200 mls/ hr IVPB Q4H [facility] Last Admin: 04/05/19 10:52 Dose: 200 mls/hr Ketorolac Tromethamine (Toradol Inj*) 15 mg IV PUSH Q6H PRN PRN Reason: Moderate pain Morphine Sulfate (Morphine Inj (Syringe))*) 1 mg IV Q2H PRN PRN Reason: SEVERE PAIN Vital Signs - 8 hr 04/05/19 04/05/19 08:00 09:00 Temperature 98.3 F Pulse Rate 62 Respiratory 18 16 Rate Blood Pressure 143/83 (mmHg) O2 Sat by Pulse 100 Oximetry Oxygen Devices in Use Now: None Exam: Patient was lying on a bed but looked sad. HEENT: There is erythema over right anterior tonsillar pillar with no any pus point. Trismus present. Neck: Reactive Jugulodigastric lymph node: Palpable and tender. Soft lump palpated which is tender. Heart: Normal heart sound heard with no any murmur. Chest: Normal vesicular sound heard. Abdomen: Soft, Nontender and normal bowel sound heard. Neuro: Alert, conscious and oriented. Extremities: Normal Result Diagrams: 04/05/19 09:17 07/26/19 09:17 Assess/Plan/Problems-Billing 33 y/o F with PMH of Peritonsillar abscess presented with Right sided throat pain, fever, redness over neck and lower right cheek and odynphagia with Streptococcal Pharyngitis(on augmentin). Found to have Right Peritonsillar abscess. Unsucessfull attempts of drainage on clinic. CT Neck confirmed peritonsillar abscess and enlarged thyroid with multiple nodule. Drainage done today after her worsening symptom.(04/05), Continue iv abx today, change to PO tomorrow.(continue 7 more days; total 10 days including iv) Stop steroids. Plan to discharge her tomorrow. - Patient Problems (1) Peritonsillar abscess Current Visit: Yes Status: Acute Code(s): J36 - PERITONSILLAR ABSCESS SNOMED Code(s): 28961051 Comment: Suggested by history and examination. Confirmed by CT. Patient is on IV antibiotics(started on 04/02) and her sx are getting worse. Drainage of peritonsillar abscess sone.(04/02). Steroids stopped. Plan: Continue IV abx today. Change to PO tomorrow. Continue abx for total of 10 days(including iv) i.e till 04/12. plan to d/c tomorrow. (2) Strep pharyngitis Current Visit: Yes Status: Acute Code(s): J02.0 - STREPTOCOCCAL PHARYNGITIS SNOMED Code(s): 30492064 Comment: Sore throat and odynophagia. Tested positive. She is on antibiotic. (3) Goiter Current Visit: Yes Status: Acute Code(s): E04.9 - NONTOXIC GOITER, UNSPECIFIED SNOMED Code(s): 9764436 Comment: Nodular. suggested by physical exam and confirmed by CT. Low total t3 and Anti-TPO is positive. Endocrinology consulted. US thyroid done. Plan to do FNAC in thyroid clinic and f/u endo clinic in 4 weeks. (4) DVT prophylaxis Current Visit: Yes Status: Acute Code(s): Z29.9 - ENCOUNTER FOR PROPHYLACTIC MEASURES, UNSPECIFIED SNOMED Code(s): 449265580 Comment: Encourage ambulation. (5) Full code status Current Visit: Yes Status: Acute Code(s): Z78.9 - OTHER SPECIFIED HEALTH STATUS SNOMED Code(s): 126646572 Status and Disposition: Medicine inpatient Attending: Coni Kapoor <Coni Kapoor - Last Filed: 04/06/19 12:50> Objective Active Medications: Acetaminophen (Tylenol Tab*) 650 mg PO Q4H PRN PRN Reason: FEVER/PAIN Last Admin: 04/06/19 03:13 Dose: 650 mg Clindamycin HCl/Dextrose (Cleocin 600 Mg Ivpremix(*) Sdv) 600 mg in 50 mls @ 100 mls/hr IV Q6H [facility] Last Admin: 04/06/19 11:54 Dose: 100 mls/hr Penicillin G Potassium 4,000, (000 units/ Sodium Chloride) 100 mls @ 200 mls/ hr IVPB Q4H [facility] Last Admin: 04/06/19 10:38 Dose: 200 mls/hr Ketorolac Tromethamine (Toradol Inj*) 15 mg IV PUSH Q6H PRN PRN Reason: Moderate pain Morphine Sulfate (Morphine Inj (Syringe))*) 1 mg IV Q2H PRN PRN Reason: SEVERE PAIN Vital Signs - 8 hr 04/06/19 04/06/19 08:00 10:45 Temperature 98.4 F Pulse Rate 63 Respiratory 16 18 Rate Blood Pressure 124/81 (mmHg) O2 Sat by Pulse 100 Oximetry Result Diagrams: 04/06/19 05:46 04/06/19 05:46 Assess/Plan/Problems-Billing Assessment: Status and Disposition: Worsening of neck pain today. ENT to do bedside I&D today. afeb, vss tearful, nontoxic R tonsil swollen and erythematous significantly improved erythema over front and R neck, up to R mandible neck supple thyroid mildly enlarged with b/l nodules rrr no mgr ctab soft ntnd no LE edema A/P 33 year old healthy woman presents with strep pharyngitis c/b R peritonsillar abscess, unable to be drained in clinic, now on steroids and IV antibiotics. # Strep pharyngitis c/b peritonsillar abscess - cont IV antibiotics clinda/PNC (04/02 - ) - last day of PO steroids - appreciate ENT input, to do I&D today # Goiter. - endo consult appreciated - will refer for thyroid FNA as outpatient Attestation Documenting Resident: Lukasz Supervising Physician: Antwon Attestation: This service has been performed in part by a resident under the direction of a teaching physician.I, Antwon, performed the service, or was physically present during the critical, or polk portions of the service, furnished by the resident. I participated in the management of the patient.
--- NOTE | 2019-04-05 15:01 | PN ---
PROGRESS NOTE: DATE OF SERVICE: 04/05/19 HISTORY: I got notified this morning that the patient's symptoms for a peritonsillar abscess were returning. Dr. King looked at her and thought that it might be and go to the operating room if needed for either drainage or tonsillectomy. I am seeing her now at about 1:30 and she says that starting yesterday evening after I saw her she started getting more pain and trismus as if the abscess was returning. PHYSICAL EXAMINATION: She does appear to have a little more bulging, it is not 100% definitive, but clearly symptomatically she is having progression of the abscess. ASSESSMENT: The patient has a right peritonsillar abscess. RECOMMENDATIONS: We discussed either attempting an incision and drainage under local anesthesia or taking to the operating room for I and D or tonsillectomy. We talked about the additional risks of tonsillectomy with life and work restrictions for a couple of weeks and risk of bleeding requiring a trip to the operating room. She thinks she will tolerate an attempt of I and D on the floor again, it was not too bad for her when I attempted that in the office and so we will start there and take her to the operating room as needed. [id number]/[facility] #: [id number] KARSON
--- NOTE | 2019-04-05 17:26 | PN ---
PROGRESS NOTE: DATE OF SERVICE: 04/05/19 HISTORY: I had a successful incision and drainage of a right peritonsillar abscess in her room under local anesthesia. Her throat was sprayed with 4% lidocaine with an atomizer, then the right peritonsillar area was injected with 1% lidocaine with epinephrine. I used a seeker needle to aspirate, found the pus. Used an 11-blade to make a mucosal incision, took a long cryo and popped into the abscess cavity and drained the pus. The patient tolerated this well. RECOMMENDATIONS: We can discharge the dexamethasone after today's dosing and, from an ENT standpoint, she should be fine to go home tomorrow. I am putting her back on a soft diet. [id number]/[facility] #: [id number] [facility]
[2019-04-06] MEDS: Clindamycin 600 MG IVPREMIX(* 600 MG/50 ML SDV IV SCH ×3 (00:13→11:54)
[2019-04-06] MEDS: Penicillin G Potassium IV* 4,000,000 UNITS in NS 0.9% 100 ML* 100 ML IVPB SCH ×3 (02:55→10:38)
[2019-04-06] MEDS ORDERED: Acetaminophen TAB* 325 MG PO PRN (03:08)
[2019-04-06 06:16] LABS: Hematocrit 34 % (35-47); Hemoglobin 11.4 g/dL (12.0-16.0); Mean Corpuscular HGB Conc 34 g/dL (31-36); Mean Corpuscular Hemoglobin 31 pg (27-31); Mean Corpuscular Volume 92 fL (80-97); Mean Platelet Volume 8.3 fL (7.4-10.4); Platelet Count 242 10^3/uL (150-450); Red Blood Count 3.66 10^6 /uL (3.70-4.87); Red Cell Distribution Width 13 % (10-15); White Blood Count 9.6 10^3/uL (3.5-10.8)
[2019-04-06 06:30] LABS: BUN/Creatinine Ratio 20.3 (8-20); C Reactive Protein 12.77 mg/L (<8.01); Calcium 8.4 mg/dL (8.6-10.3); EGFR African American 140.4 (>60); Magnesium 1.9 mg/dL (1.9-2.7); Potassium 3.6 mmol/L (3.5-5.0)
[2019-04-06 13:07] VITALS: BP 134/79
--- NOTE | 2019-04-07 03:18 | DS ---
CC: Dr. Sari Gilbert; Dr. Xavier Stovall; Dr. Jose Conn * DISCHARGE SUMMARY: DATE OF ADMISSION: 04/02/19 DATE OF DISCHARGE: 04/06/19 PRIMARY CARE PHYSICIAN: Dr. Sari Gilbert. ENT: Dr. Xavier Stovall. PRIMARY DIAGNOSES: 1. Peritonsillar abscess. 2. Multinodular goiter. CONSULTS: Endocrinology, Dr. Jose Conn; ENT, Dr. Xavier Stovall. PROCEDURES: Bedside incision and drainage of right tonsillar abscess on . DISCHARGE MEDICATIONS: 1. Clindamycin 300 mg every 6 hours for 5 more days. 2. Ibuprofen 600 mg up to 3 times a day as needed for pain. HISTORY OF PRESENT ILLNESS: Ms. Alicia is a 33-year-old healthy woman, who was sent from ENT Clinic for direct admission due to peritonsillar abscess. The patient stated she was in her usual state of health until approximately 4 days prior to admission when she started to have right-sided throat pain. She describes having a peritonsillar abscess approximately 10 years ago and she thought she may be coming down with the same thing and she started to take ibuprofen. Initially, she had improvement in her symptoms, but over the weekend , her symptoms progressed and began to be associated with fever, malaise, and pain when swallowing. She went to Urgent Care and was prescribed amoxicillin only and she possibly had tested positive for strep. After returning home, the symptoms continued and 1 day prior to admission, she had presented to the emergency room where she was given an intramuscular injection of ceftriaxone and dexamethasone followed by significant improvement and she was able to swallow and eat; however, the next morning, she woke up around 4 a.m. and saw that the swelling and pain are much worse and now had redness on the right side of her neck that was extending down to her chest. She already had an appointment scheduled for ENT the following day, but she requested to be seen sooner. On physical exam, she was noted to have a posterior pharynx bulge of the right anterior tonsillar pillar with medialization of the tonsil. Dr. Stovall attempted an I and D in the clinic, but was not able to localize an abscess cavity. He also noted erythema of the right neck skin with a 2-cm right mass in the lower jugular chain, so he contacted Vascular Service for direct admission. HOSPITAL COURSE: On presentation, the patient was still experiencing pain, although not as severe as earlier in the day. She did not have shortness of breath. She was admitted directly to the medical service and started on IV clindamycin, penicillin, and dexamethasone as recommended by ENT. She also underwent a neck CT, which showed a right oropharyngeal peritonsillar abscess with enlarged thyroid with multiple nodules. She improved significantly after 1 to 2 days of IV antibiotics with steroids; however, on day 3 of admission, her right tonsillar pain became stronger, so on that day a bedside I and D was performed by ENT with some pus expressed. Her steroids were then discontinued and she was kept on IV antibiotics for one more day. By day of discharge, she did not experience return of significant pain. The erythema over her neck had resolved and her swelling had significantly decreased, so, we believed that she could be discharged on 5 extra days of clindamycin with no further need for steroids per ENT. Of note, during admission, given enlarged thyroid with nodules seen on neck CT, Dr. Jose Conn of Endocrine was consulted. She was thought unlikely to have a toxic multinodular goiter and her presentation was thought to be consistent with possible autoimmune thyroiditis; however, he set the patient up with Endocrinology followup and thyroid nodule clinic appointment for an outpatient biopsy to exclude thyroid cancer. Throughout hospitalization, the patient remained afebrile and without leukocytosis. She was seen by undercar specialist for recommendations on which medications were safe for breast-feeding mother and for better breast pump technology to be able to continue producing milk for her child. On day of discharge, a 10-point review of systems was performed and was significant for feeling of lump in throat when swallowing, which has been the patient's baseline for several days. She denied fever, chills, or difficulty breathing. She did have pain on her throat occasionally, but not at time of interview. PHYSICAL EXAMINATION: Temperature 98.4, heart rate 63, blood pressure 124/81, respiratory rate 16, oxygen saturation 100% on room air. In general, she is a well- appearing woman, in no acute distress, nontoxic appearing, alert and interactive, very pleasant. HEENT: Right peritonsillar abscess significantly decreased in size with overlying erythema most pronounced near previous I and D site. No noted pustular drainage without pus point. Neck: No erythema, palpable reactive submandibular lymph node on right, nontender. Thyroid mildly enlarged with nodules felt bilaterally. Heart: Regular rate and rhythm. No murmurs, gallops, or rubs. Lungs: Clear to auscultation bilaterally. Abdomen: Soft, nontender, nondistended. Lower extremities were warm and well perfused. No evidence of edema. PERTINENT STUDIES AND LABS: Hemoglobin 11.4 at baseline. CRP 113 on admission , 12.7 on discharge. TSH 0.85 with T4 7.5 and total T3 76. Thyroglobulin antibody negative. TPO 51.8, which is elevated. Neck CT with right oropharyngeal peritonsillar abscess and enlarged thyroid with multiple nodules. Thyroid ultrasound showed an enlarged right and left lobe of thyroid with 3 prominent heterogeneous nodules, 2 on the right and 1 on the left, ranging in size from 2 to 3 cm, FNA is recommended. DISCHARGE PLAN: The patient is to follow up with Dr. Stovall of ENT and Dr. Jose Conn of Endocrinology for ongoing care of her right peritonsillar abscess and enlarged thyroid with nodules respectively. She will continue 5 days of clindamycin as recommended by ENT. She was educated to seek care urgently if she were to develop watery diarrhea with abdominal pain. She can continue to take NSAIDs as needed for throat pain and swelling and was educated on signs of gastritis or GI bleeding. She will be referred to thyroid nodule clinic by Dr. Conn's endocrine clinic. She was educated on return precautions which include, but are not limited to, recurrence of fever, neck erythema, or worsening of throat pain or swelling or any forms of airway compromise given enlarged thyroid nodules. She is to eat healthy diet, low in processed foods, and resume activity as tolerated. DISPOSITION: To home. CONDITION: Good. TIME SPENT: Approximately 60 minutes was spent on discharge of this patient; more than half of which was spent on care and coordination at bedside, for interview and exam. [id number]/[facility] #: [id number] KARSON
== END 2019-04-06 14:15 | disposition home or self-care (01) | DRG 97 ==
LOC: MED 15:29
PROVIDERS: ADMIT Internal Medicine; ATTEND Internal Medicine
PROC: 0C9P0ZZ Drainage of Tonsils, Open Approach (ICD-10-PCS; principal; 2019-04-05)
DX: J36 Peritonsillar abscess (principal); E04.2 Nontoxic multinodular goiter; E06.3 Autoimmune thyroiditis; R13.10 Dysphagia, unspecified; R25.2 Cramp and spasm; Z81.2 Family history of tobacco abuse and dependence; Z80.1 Family history of malignant neoplasm of trachea, bronchus and lung; Z80.52 Family history of malignant neoplasm of bladder; Z82.3 Family history of stroke; Z82.49 Family history of ischemic heart disease and other diseases of the circulatory system; Z87.891 Personal history of nicotine dependence; Z83.49 Family history of other endocrine, nutritional and metabolic diseases
CPT/HCPCS: 36415; 70491; 76536; 80048; 80053; 83605; 83735; 84436; 84443; 84479; 84702; 85025; 85027; 86140; 86376; 86800; 87040; A9270-GY; J1100; J2001; J2540; J3480; J8540; Q9967

== ENCOUNTER 2019-11-10 10:57 | Emergency (ER) | payer OTHER ==
[2019-11-10] MEDS ORDERED: Clindamycin 900 MG/D5W BAG(*) 900 MG/50 ML BAG IVPB ONE (11:34)
[2019-11-10] MEDS ORDERED: Dexamethasone IV* 4 MG/ML 1 ML (4 MG) IV SLOW PU ONE (11:34)
--- OUTSIDE RECORDS SUMMARY | 2019-11-10 11:49 | XMS REPORT | Continuity of Care Document ---
:1985 External Reference #:[id number] Author Name Kathleen Somers PA-C Address [address] [place] [address] Care Team Providers Name Role Phone Eden Encinas M.D. RMadhuri - Family Care Team Information Regulatory Affairs Strategy Specialist [phone] Medicine Problems Description No Information Available Social History Type Date Description Comments Sex Unknown Tobacco Use Start: Unknown End: Former Cigarette Smoker 1 quit at age 23 Unknown Pack Daily Tobacco Use Start: Unknown Never Smoked Cigars Tobacco Use Start: Unknown Never Smoked A Pipe Smokeless Tobacco Never Used Smokeless Tobacco ETOH Use Currently occasionally consumes alcohol Tobacco Use Start: Unknown End: Patient is a former smoker Unknown Smoking Status Reviewed: 11/06/19 Patient is a former smoker Allergies, Adverse Reactions, Alerts Description No Known Drug Allergies Medications Active Medications SIG Qnty Indications Ordering Provider Date Prednisone 60 for 2 days, 12tabs R22.1 Terry Knox 11/05/2019 20mg Tablets then 40 for 2 MD Fernando days, then 20 for 2 days Clindamycin HCL take 1 pill 4 13caps R22.1 Terry Knox 11/04/2019 300mg times a day MD Fernando Capsules (changing sig from 3 times a day) Vitamin as directed Unknown Vitamin B Complex 1 by mouth every Unknown day Tablets Vitamin D 1 by mouth every Unknown 1000Unit day Tablets Vitamin C Unknown W/Vitamin E [id number] Capsules Zinc 1 by mouth every Unknown 30mg Capsules day Ibuprofen 3 by mouth every Unknown 200mg 4 hrs Capsules Tylenol 2 tabs every 3 Unknown 325mg Capsules hours History Medications Prednisone Take 1 pill in 6tabs R22.1 Terry King, 11/04/2019 - 20mg the am for 4 MD 11/07/2019 Tablets days, then 1/2 pill for 4 days Immunizations Description No Information Available Vital Signs Date Vital Result Comment 11/08/2019 8:34am Body Temperature 99.0 F Weight 186.00 lb Weight 84.370 kg Height 74 inches 6'2" Height in cm's 188.0 cm BMI (Body Mass Index) 23.9 kg/m2 11/05/2019 1:54pm Body Temperature 99.0 F Weight 186.00 lb Weight 84.370 kg Height 74 inches 6'2" Height in cm's 188.0 cm BMI (Body Mass Index) 23.9 kg/m2 Results Description No Information Available Procedures Date Code Description Status 11/08/2019 30690 I&D Peritonsillar Abcess Completed 11/05/2019 73117 I&D Peritonsillar Abcess Completed 11/05/2019 55692 Fiberoptic Laryngoscopy Completed Medical Devices Description No Information Available Encounters Type Date Location Provider Dx Diagnosis Office Visit 11/08/2019 Augusto Little Peritonsillar abscess 8:30a 09-11-2019 [facility] R22.1 Localized swelling, mass and lump, neck Office Visit 11/05/2019 1:45p Archie 09-11-2019 Kathleen Casas Peritonsillar [facility] Somers abscess R22.1 Localized swelling, mass and lump, neck Office Visit 11/04/2019 10:45a Archie 09-11-2019 Kathleen Somers PA-C abscess R22.1 Localized swelling, mass and lump, neck Assessments Date Code Description Provider 11/08/2019 [facility] Peritonsillar abscess Kathleen Somers PA-C 11/08/2019 R22.1 Localized swelling, mass and lump, neck Kathleen Somers PA-C 11/05/2019 [facility] Peritonsillar abscess Kathleen Somers PA-C 11/05/2019 R22.1 Localized swelling, mass and lump, neck Kathleen Somers PA-C 11/04/2019 [facility] Peritonsillar abscess Kathleen Somers PA-C 11/04/2019 R22.1 Localized swelling, mass and lump, neck Kathleen Somers PA-C Plan of Treatment Future Appointment(s):11/11/2019 8:45 am - Kathleen Somers PA-C at [facility] 2019 Functional Status Description No Information Available Mental Status Description No Information Available Referrals Description No Information Available
--- OUTSIDE RECORDS SUMMARY | 2019-11-10 11:49 | XMS REPORT | Continuity of Care Document ---
:1985 External Reference #:[id number] Author Name Kathleen Somers PA-C Address [address] [place] [address] Care Team Providers Name Role Phone Eden Encinas M.D. RMadhuri - Family Care Team Information Information Security Consultant Medicine Problems Description No Information Available Social [...] a former smoker Unknown Smoking Status Reviewed: 11/05/19 Patient is a former smoker Allergies, Adverse [...] (changing sig from 3 times a day) Prednisone Take 1 pill in 6tabs R22.1 Terry Knox 11/04/2019 20mg Tablets the am for 4 MD Fernando days, then 1/2 pill for 4 days Vitamin as directed Unknown Vitamin B Complex 1 by mouth every Unknown day Tablets Vitamin D 1 by mouth every Unknown 1000Unit day Tablets Vitamin C Unknown W/Vitamin E [id number] Capsules Zinc 1 by mouth every Unknown 30mg Capsules day Ibuprofen 3 by mouth every Unknown 200mg 4 hrs Capsules Tylenol 2 tabs every 3 Unknown 325mg Capsules hours Immunizations Description No Information Available Vital Signs Date Vital Result Comment 11/05/2019 1:54pm Body Temperature 99.0 F Weight 186.00 lb Weight 84.370 kg Height 74 inches 6'2" Height in cm's 188.0 cm BMI (Body Mass Index) 23.9 kg/m2 11/04/2019 10:47am Body Temperature 99.1 F Weight 186.00 lb Weight 84.370 kg Height 74 inches 6'2" Height in cm's 188.0 cm BMI (Body Mass Index) 23.9 kg/m2 Results Description No Information Available Procedures Date Code Description Status 11/05/2019 85067 I&D Peritonsillar Abcess Completed 11/05/2019 35707 Fiberoptic Laryngoscopy Completed Medical Devices Description No Information Available Encounters Type Date Location Provider Dx Diagnosis [facility]-11-2019 [facility] R22.1 Localized swelling, mass and lump, neck Office Visit 11/04/2019 10:45a [facility] 09-11-2019 Kathleen Casas Peritonsillar JOE Somers abscess R22.1 Localized swelling, mass and lump, neck Assessments Date Code Description Provider 11/05/2019 [facility] Peritonsillar abscess Kathleen Somers PA-C 11/05/2019 R22.1 Localized swelling, mass and lump, neck Kathleen Somers PA-C 11/04/2019 [facility] Peritonsillar abscess Kathleen Somers PA-C 11/04/2019 R22.1 Localized swelling, mass and lump, neck Kathleen Somers PA-C Plan of Treatment Future Appointment(s):11/08/2019 8:30 am - Kathleen Somers PA-C at [facility] 2019 Functional Status Description No Information Available Mental Status Description No Information Available Referrals Description No Information Available
--- OUTSIDE RECORDS SUMMARY | 2019-11-10 11:49 | XMS REPORT | Continuity of Care Document ---
:1985 External Reference #:[id number] Author Name Celi Yan NP (transmitted by agent of provider Flory Castro) Address [address], [place] [address] Care Team Providers Name Role Phone Eden Encinas MD - Family Care Team Information Senior Investment Analyst Medicine Problems Description No Information Available Social History Type Date Description Comments Sex Unknown Tobacco Use Start: Unknown End: Former Cigarette Smoker 1 Unknown Pack Daily Cigarette Use Pack Years - 10 Smoking Status Reviewed: 09/20/19 Former Cigarette Smoker 1 Pack Daily ETOH Use Occasionally consumes alcohol Tobacco Use Start: Unknown End: Patient is a former smoker Unknown Exercise Type/Frequency Exercises sporadically Allergies, Adverse Reactions, Alerts Description No Known Drug Allergies Medications Active Medications SIG Qnty Indications Ordering Provider Date Ibu 1 tab by mouth Unknown 600mg Tablets every 6 hours as needed Post Zan Vitamins Unknown Probiotic 1 by mouth every Unknown Capsules day Vitamin C 1 by mouth every Unknown 1000mg Tablets day Vitamin D 1 by mouth every Unknown 2000Unit day Capsules Zinc 1 by mouth every Unknown 50mg Tablets day Vitamin B Complex 1 by mouth every Unknown day Tablets Immunizations Description No Information Available Vital Signs Date Vital Result Comment 09/20/2019 9:10am Height 74 inches 6'2" Weight 192.00 lb Heart Rate 74 /min BP Systolic 121 mmHg BP Diastolic 78 mmHg O2 % BldC Oximetry 97 % BMI (Body Mass Index) 24.6 kg/m2 07/26/2019 9:35am Height 74 inches 6'2" Weight 194.00 lb Heart Rate 97 /min BP Systolic 128 mmHg BP Diastolic 77 mmHg Body Temperature 97.1 F O2 % BldC Oximetry 99 % BMI (Body Mass Index) 24.9 kg/m2 Results Test Acquired Date Facility Test Result H/L Range Note Anti-Thyroid 09/18/2019 [facility] Thyroperoxidase AB 28.95 High <[address] IU/[place] [address] [phone] Thyroglobulin AB 0.1 IU/mL <4.0 Thyroid Panel 09/18/2019 [facility] Free T4 (Free 1.29 ng/dL High 0.61-1.12 [facility] Thyroxine) [place] [address] [phone] Thyroxine 7.42 g/dL Normal 6.09-12.23 TSH (Thyroid Stim Horm) 0.44 mcIU/mL Normal 0.34-5.60 Laboratory test 09/18/2019 [facility] T3 Free 3.40 pg/mL Normal 2.5-3.9 [place] [address] [phone] T3 Total 72 ng/dL Low 87-178 Laboratory test 07/31/2019 [facility] Thyroglobulin AB 0.0 IU/ mL <4.0 1, 2 finding [address] [place] [address] [phone] Free T4 (Free Thyroxine) 0.84 ng/dL Normal 0.61-1.12 3 Thyroxine 5.76 g/dL Low 6.09-12.23 4 T3 Total 70 ng/dL Low 87-178 5 T3 Free 2.60 pg/mL Normal 2.5-3.9 6 TSH (Thyroid Stim Horm) 1.00 mcIU/mL Normal 0.34-5.60 7 Thyroperoxidase AB 34.69 IU/mL High <9 8 T3 Reverse 18 ng/dL 10-24 9 Anti-Thyroid 07/26/2019 [facility] Thyroperoxidase AB <pending> Antibodies Screen [address] [place] [address] [phone] Thyroglobulin AB <pending> Laboratory test finding 07/26/2019 [facility] T3 Free <pending> [address] [place] [address] [phone] T3 Reverse <pending> T3 Total <pending> Thyroid Panel 07/26/2019 [facility] Free T4 (Free <pending> DRIVE Thyroxine) [place] [address] [phone] Thyroxine <pending> TSH (Thyroid Stim Horm) <pending> Laboratory test 05/31/2019 [facility] Ach Receptor Binding < pending> finding [address] [place] [address] [phone] Anti-Thyroid 05/31/2019 [facility] Thyroperoxidase AB <pending> Antibodies DRIVE Screen [place], [place] [address] [phone] Thyroglobulin AB <pending> Laboratory test finding 05/31/2019 [facility] T3 Free <pending> [place] [address] [phone] T3 Reverse <pending> T3 Total <pending> Transglutaminase Igg 05/31/2019 [facility] Tissue <1.2 10 & Iga Transglutaminase IgA U/[place] [address] Ab [phone] Tissue Transglutaminase IgG Ab <1.2 U/mL 11 Anti Gliadin Igg And Iga 05/31/2019 [facility] Gliadin IgG < 10.[address] [place] [address] [phone] Gliadin IgA <10.0 U 13 Thyroid 05/31/2019 [facility] Free T4 (Free 1.01 Normal 0.61- 1.12 Panel [facility] DRIVE Thyroxine) ng/[place] [address] [phone] Thyroxine 6.72 g/dL Normal 6.09-12.23 TSH (Thyroid Stim Horm) 0.25 mcIU/mL Low 0.34-5.60 Laboratory test 05/31/2019 [facility] T3 Free 3.00 pg/mL Normal 2.5-3.[address] [place] [address] [phone] T3 Reverse 15 ng/dL 10-24 14 T3 Total 64 ng/dL Low 87-178 Thyroglobulin AB 0.0 IU/mL <4.0 Thyroperoxidase AB 32.25 IU/mL High <9 Laboratory 05/17/2019 [facility] Zinc Serum 0.86 0.66-1.10 15, [address] g/[place] [address] [phone] Vitamin B6 05/17/2019 [facility] Pyridoxal 48 g/L 5-50 17 [address] [facility] 5[place] [address] [phone] Pyridoxic Acid 15 g/L 3-30 18 Laboratory 05/17/2019 [facility] Selenium 127 ng/mL 70-150 19 test finding [address] [place] [address] [phone] MTHFR 05/17/2019 [facility] 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 [address] [place] [address] [phone] MTHFR Interpretation See Comment 20 MTHFR Reviewed By See Comment 21 MTHFR [id number] Mutation Negative Negative Mthac Interpretation See Comment 22 Mthac Reviewed By See Comment 23 Laboratory test 05/17/2019 [facility] Iodine Serum 64 ng/mL 40-92 24 finding [address] [place] [address] [phone] Heavy Metal Blool 05/17/2019 [facility] Arsenic 2 ng/mL 0-12 25 [address] [place] [address] [phone] Lead <1.0 g/dL 0.0-4.9 26 Mercury 2 ng/mL 0-9 27 Cadmium <0.2 ng/mL 0.0-4.[address] [place] [address] [facility] Guardian First Name SHRUTHI Sweeney Guardian Last Name [facility] Venous/Capillary Heavy Metals Venous Patient Race WHITE Submitting Laboratory Phone [phone] Celiac Hla 05/17/2019 [facility] [id number] SEE BELOW 30 [address] [place] [address] [phone] [id number] SEE BELOW 31 Celiac Gene Pairs Present? Yes Celiac Gene Interpretation See Comment 32 Laboratory test 05/17/2019 [facility] Ferritin 52.9 ng/mL Normal 11-307 [address] [place] [address] [phone] Vitamin B12 370 pg/mL Normal 180-914 33 Folic Acid (Folate) > 20.00 ng/mL >3.99 Insulin Level 1.6 mcIU/mL Low 2.0-16.0 CRP High Sensitivity 0.45 mg/L <2.00 Vitamin D Total 25(Oh) 32.0 ng/mL Normal 20-50 34 Hemoglobin A1c (Glyco HGB) 5.3 % Normal 4.0-5.6 35 Homocysteine 9 mcmol/L 36 Copper, Serum 1.05 g/mL 0.75-1.45 37 Iron & Iron Binding 05/17/2019 [facility] Iron 60 g/dL Normal 50-[address] [place] [address] [phone] Unsaturated Iron Binding < 261 g/dL Total Iron Binding Capacity 276 g/dL Normal 250-450 Transferrin 197 mg/dL Low 203-362 % Iron Saturation 22 % Normal 15-55 Comp Metabolic 05/17/2019 [facility] Sodium 139 mmol/L Normal 135-[address] [place] [address] [phone] Potassium 4.4 mmol/L Normal 3.5-5.0 Chloride 105 mmol/L Normal 101-111 Co2 Carbon Dioxide 29 mmol/L Normal 22-32 Anion Gap 5 mmol/L Normal 2-11 Glucose 82 mg/dL Normal 70-100 Blood Urea Nitrogen 14 mg/dL Normal 6-24 Creatinine 0.68 mg/dL Normal 0.51-0.95 BUN/Creatinine Ratio 20.6 High 8-20 Calcium 9.6 mg/dL Normal 8.6-10.3 Total Protein 6.6 g/dL Normal 6.4-8.9 Albumin 4.7 g/dL Normal 3.2-5.2 Globulin 1.9 g/dL Low 2-4 Albumin/Globulin Ratio 2.5 Normal 1-3 Total Bilirubin 0.40 mg/dL Normal 0.2-1.0 Alkaline Phosphatase 44 U/L Normal 34-104 Alt 18 U/L Normal 7-52 Ast 14 U/L Normal 13-39 Egfr Non- 97.9 >60 Egfr 118.5 >60 38 CBC Auto 05/17/2019 [facility] White Blood 3.9 10^3/uL Normal 3.5-10.[address] [place] [address] [phone] Red Blood Count 4.11 10^6/uL Normal 3.70-4.87 Hemoglobin 12.9 g/dL Normal 12.0-16.0 Hematocrit 37 % Normal 35-47 Mean Corpuscular Volume 90 fL Normal 80-97 Mean Corpuscular Hemoglobin 31 pg Normal 27-31 Mean Corpuscular HGB Conc 35 g/dL Normal 31-36 Red Cell Distribution Width 12 % Normal 10-15 Platelet Count 239 10^3/uL Normal 150-450 Mean Platelet Volume 7.9 fL Normal 7.4-10.4 Abs Neutrophils 2.3 10^3/uL Normal 1.5-7.7 Abs Lymphocytes 1.3 10^3/uL Normal 1.0-4.8 Abs Monocytes 0.3 10^3/uL Normal 0-0.8 Abs Eosinophils 0.1 10^3/uL Normal 0-0.6 Abs Basophils 0.0 10^3/uL Normal 0-0.2 Abs Nucleated RBC 0.0 10^3/uL Granulocyte % 57.9 % Lymphocyte % 33.2 % Monocyte % 6.5 % Eosinophil % 1.6 % Basophil % 0.8 % Nucleated Red Blood Cells % 0.0 Cytology Non-Assistant Attorney General 04/22/2019 [facility] Cytology Nongyn SEE RESULT [address] [place] [address] [phone] PDFReport [id number] <SEE NOTE> Laboratory test finding 04/19/2019 [facility] Selenium <pending > [place] [address] [phone] Iodine Serum <pending> Laboratory test 04/19/2019 [facility] CRP High <pending> [place] [address] [phone] Laboratory test 04/19/2019 [facility] Copper, Serum <pending> [place] [address] [phone] Laboratory test 04/19/2019 [facility] Hemoglobin A1c <pending> finding DR[address] (Glyco HGB) [place] [address] [phone] Homocysteine <pending> Insulin Level <pending> Laboratory test finding 04/19/2019 [facility] Vitamin B6 < pending> [address] [place] [address] [phone] Vitamin D Total 25(Oh) <pending> Zinc Serum <pending> Laboratory test finding 04/19/2019 [facility] Ferritin <pending > [address] [place], [place] [address] [phone] Laboratory test finding 04/19/2019 [facility] Transferrin < pending> [address] [place] [address] [phone] Vitamin B12 And Folate 04/19/2019 [facility] Vitamin B12 < pending> Serum [address] [place] [address] [phone] Folic Acid (Folate) <pending> 1 FASTING 2 FASTING 3 FASTING 4 FASTING 5 FASTING 6 FASTING 7 FASTING 8 FASTING 9 ADDITIONAL INFORMATION This test was developed and its performance characteristics determined by [facility] in a manner consistent with CLIA requirements. This test has not been cleared or approved by the U.S. Food and Drug Administration. Test Performed by: [facility] [place] [address] Wafer Fabrication Technician: Bismark Suresh M.D. Ph.D.; CLIA# [id number] 10 REFERENCE VALUE <4.0 (Negative) 11 REFERENCE VALUE <6.0 (Negative) Test Performed by: [facility] [place] [address] Wafer Fabrication Technician: Bismark Suresh M.D. Ph.D.; CLIA# [id number] 12 REFERENCE VALUE <20.0 (Negative) Test Performed by: [facility] [place] [address] Wafer Fabrication Technician: Bismark Suresh M.D. Ph.D.; CLIA# [id number] 13 REFERENCE VALUE <20.0 (Negative) 14 ADDITIONAL INFORMATION This test was developed and its performance characteristics determined by [facility] in a manner consistent with CLIA requirements. This test has not been cleared or approved by the U.S. Food and Drug Administration. Test Performed by: [facility] [place] [address] Wafer Fabrication Technician: Bismark Suresh M.D. Ph.D.; CLIA# [id number] 15 discussed & reviewed with patient 16 ADDITIONAL INFORMATION This test was developed and its performance characteristics determined by [facility] in a manner consistent with CLIA requirements. This test has not been cleared or approved by the U.S. Food and Drug Administration. Test Performed by: [facility] [place] [address] Wafer Fabrication Technician: Bismark Suresh M.D. Ph.D.; CLIA# [id number] 17 ADDITIONAL INFORMATION This test was developed and its performance characteristics determined by [facility] in a manner consistent with CLIA requirements. This test has not been cleared or approved by the U.S. Food and Drug Administration. 18 ADDITIONAL INFORMATION This test was developed and its performance characteristics determined by [facility] in a manner consistent with CLIA requirements. This test has not been cleared or approved by the U.S. Food and Drug Administration. Test Performed by: [facility] [place] [address] Wafer Fabrication Technician: Bismark Suresh M.D. Ph.D.; CLIA# [id number] 19 ADDITIONAL INFORMATION This test was developed and its performance characteristics determined by [facility] in a manner consistent with CLIA requirements. This test has not been cleared or approved by the U.S. Food and Drug Administration. Test Performed by: [facility] [place] [address] Wafer Fabrication Technician: Bismark Suresh M.D. 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 MTHFR C677T carriers are not at increased risk for thrombosis in the absence of hyperhomocysteinemia. Homozygous MTHFR C677T carriers are at increased risk for hyperhomocysteinemia if they become deficient in vitamins B6, B12 or folic acid. Hyperhomocysteinemia is a relatively weak risk factor for both venous thromboembolism and arterial thrombosis. The MTHFR C677T gene mutation test does not detect other causes of hyperhomocysteinemia due to acquired disorders (renal failure, zinc deficiency, leukemia, psoriasis, or antifolate drug therapy). If clinically indicated, suggest Coagulation Consultation 40613 (Thrombophilia Profile) to complete the evaluation for an inherited or acquired thrombosing disorder (i.e., thrombophilia). Consider genetic consultation and counseling of potentially affected family members regarding laboratory testing. ADDITIONAL INFORMATION This test is a direct mutation analysis using PCR amplification, signal generation and release by cleavage of sequence specific alleles ([employer], [employer], [place], [place]). This test has been modified from the kettle cleaner's instructions. Its performance characteristics were determined by [facility] in a manner consistent with CLIA requirements. This test has not been cleared or approved by the U.S. Food and Drug Administration. 21 RESULT: KARTHIKEYAN Kelsey 22 This individual DOES NOT have the Methylenetetrahydrofolate reductase (MTHAC) W0098H gene mutation. In the absence of the MTHAC D8627Y gene mutation, other causes of hyperhomocysteinemia should be considered (renal failure, zinc deficiency, leukemia, psoriasis, or antifolate drug therapy). If clinically indicated, suggest Coagulation Consultation 69500 (Thrombophilia Profile) to complete the evaluation for an inherited or acquired thrombosing disorder (i.e., thrombophilia). Consider genetic consultation and counseling of potentially affected family members regarding laboratory testing. ADDITIONAL INFORMATION This test is a direct mutation analysis using PCR amplification, signal generation and release by cleavage of sequence specific alleles ([employer], [employer], [place], [place]). This test has been modified from the kettle cleaner's instructions. Its performance characteristics were determined by [facility] in a manner consistent with CLIA requirements. This test has not been cleared or approved by the U.S. Food and Drug Administration. 23 RESULT: KARTHIKEYAN Kelsey This test is a direct mutation analysis using PCR amplification, signal generation and release by cleavage of sequence specific alleles ([employer], [employer], [place], [place]). This test has been modified from the kettle cleaner's instructions. Its performance characteristics were determined by [facility] in a manner consistent with CLIA requirements. This test has not been cleared or approved by the U.S. Food and Drug Administration. Test Performed by: [facility] - [address] [address] Wafer Fabrication Technician: Bismark Suresh M.D. Ph.D.; CLIA# [id number] 24 ADDITIONAL INFORMATION This test was developed and its performance characteristics determined by [facility] in a manner consistent with CLIA requirements. This test has not been cleared or approved by the U.S. Food and Drug Administration. Test Performed by: [facility] - [facility] [address] [place] [address] Wafer Fabrication Technician: Bismark Suresh M.D. Ph.D.; CLIA# [id number] 25 ADDITIONAL INFORMATION This test was developed and its performance characteristics determined by [facility] in a manner consistent with CLIA requirements. This test has not been cleared or approved by the U.S. Food and Drug Administration. 26 ADDITIONAL INFORMATION Testing performed by Inductively Coupled Plasma-Mass Spectrometry (ICP-MS). This test was developed and its performance characteristics determined by [facility] in a manner consistent with CLIA requirements. This test has not been cleared or approved by the U.S. Food and Drug Administration. 27 ADDITIONAL INFORMATION This test was developed and its performance characteristics determined by [facility] in a manner consistent with CLIA requirements. This test has not been cleared or approved by the U.S. Food and Drug Administration. 28 ADDITIONAL INFORMATION This test was developed and its performance characteristics determined by [facility] in a manner consistent with CLIA requirements. This test has not been cleared or approved by the U.S. Food and Drug Administration. 29 Test Performed by: [facility] [employer] - [facility] [address] [place] [address] Wafer Fabrication Technician: Bismark Suresh M.D. Ph.D.; CLIA# [id number] 30 RESULT: 01:02,03 REFERENCE VALUE Not Applicable 31 RESULT: 03:02,06:02 DQ Serologic Equivalent: 8,6 REFERENCE VALUE Not Applicable 32 These genes are permissive for celiac disease. The absence of HLA celiac permissive genes would make the presence of celiac disease unlikely. However, these genes can also be present in the normal population. ADDITIONAL INFORMATION Method: Molecular typing of HLA antigens performed using reverse SSOP and/or SSP methods, reported as serological equivalents and low to medium resolution molecular values. Performing Laboratory CLIA# [id number] Test Performed by: [place] [address] Wafer Fabrication Technician: Bismark Suresh M.D. Ph.D.; CLIA# [id number] 33 Normal Range 180 to 914 Indeterminate Range 145 to 180 Deficient Range <145 34 Total 25-Hydroxyvitamin D2 and D3 (25-OH-VitD) <10 ng/mL (severe deficiency) 10-19 ng/mL (mild to moderate deficiency) 20-50 ng/mL (optimum levels) 51-80 ng/mL (increased risk of hypercalciuria) >80 ng/mL (toxicity possible) 35 Therapeutic target for the treatment of diabetes mellitus patients is <7% HBA1C, and in selective patients <6.0%. Please refer to [place] Diabetes Association diabetic care guidelines for further information. 36 REFERENCE VALUE <=13 (Fasting) ADDITIONAL INFORMATION This test was developed and its performance characteristics determined by [facility] in a manner consistent with CLIA requirements. This test has not been cleared or approved by the U.S. Food and Drug Administration. Test Performed by: [place] [address] Wafer Fabrication Technician: Bismark Suresh M.D. Ph.D.; CLIA# [id number] 37 ADDITIONAL INFORMATION This test was developed and its performance characteristics determined by [facility] in a manner consistent with CLIA requirements. This test has not been cleared or approved by the U.S. Food and Drug Administration. Test Performed by: [facility] - [facility] [address] [place] [address] Wafer Fabrication Technician: Bismark Suresh M.D. Ph.D.; CLIA# [id number] 38 Because ethnic data is not always readily available, this report includes an eGFR for both -Americans and non- Americans. The National Kidney Disease Education Program (NKDEP) does not endorse the use of the MDRD equation for patients that are not between the ages of 18 and 70, are , have extremes of body size, muscle mass, or nutritional status, or are non- or non-. According to the National Kidney Foundation, irrespective of diagnosis, the stage of the disease is based on the level of kidney function: Stage Description GFR(mL/min/1.73 m(2)) 1 Kidney damage with normal or decreased GFR 90 2 Kidney damage with mild decrease in GFR 60-89 3 Moderate decrease in GFR 30-59 4 Severe decrease in GFR 15-29 5 Kidney failure <15 (or dialysis) 39 SEE RESULT BELOW Name: SHRUTHI STRINGER : [address]: Jose Conn MD Acct: [id number] Unit: [id number] AGE: 34 Location: Re04/22/19 SEX: F Status: REG REF SPEC: [id number] NETTA: 04/22/[address]: Jose Conn MD REQ: [id number] RECD: 04/22/19 STATUS: ANDRES EDMONDS DR: Verenice Abdalla MD _ ORDERED: FNA-IMG GUID BX/3, CYTO ADEQ-1ST P/3 THIS IS A CORRECTED REPORT 06/27/19 Corrected Report FINAL DIAGNOSIS 1) Thyroid, right mid, Ultrasound guided, fine needle aspiration: -- Benign thyroid nodule, involutional type ([place] class II). 2) Thyroid, right lower, Ultrasound guided, fine needle aspiration: -- Benign thyroid nodule, involutional type ([place] class II). 3) Thyroid, left, Ultrasound guided, fine needle aspiration: -- Benign thyroid nodule, colloid/hyperplastic ([place] class II). 1) The specimen demonstrates abundant watery proteinaceous fluid, a modest amount of benign appearing follicular epithelium arranged in uniform sheets, medium sized follicles and only occasional small groups. Abundant pigmented and non-pigmented macrophages are seen in the background. No CONTINUED ON NEXT PAGE DEPARTMENT OF PATHOLOGY, [address] [place] [address] Zaire Le M.D. Director [facility] # [id number] features of papillary carcinoma are seen. In this clinical setting the risk of malignancy is less than 3%. Clinical management of this thyroid nodule should be based on clinical and radiographic features as well as the above findings. 2) The specimen demonstrates abundant watery proteinaceous fluid, an abundant amount of benign appearing follicular epithelium arranged in uniform sheets, medium sized follicles and only occasional small groups. Abundant pigmented and non-pigmented macrophages are seen in the background. No features of papillary carcinoma are seen. In this clinical setting the risk of malignancy is less than 3%. Clinical management of this thyroid nodule should be based on clinical and radiographic features as well as the above findings. 3) The specimen demonstrates abundant watery colloid, an abundant amount of benign appearing follicular epithelium arranged in uniform sheets, medium sized follicles and only occasional small groups. No features of papillary carcinoma are seen. In this clinical setting the risk of malignancy is less than 3%. Clinical management of this thyroid nodule should be based on clinical and radiographic features as well as the above. SPECIMEN(S) RECEIVED #1. THYROID RIGHT - US GUIDED RIGHT MID THYROID NODULE FINE NEEDLE [id number], #2. THYROID RIGHT - US GUIDED RIGHT LOWER THYROID NODULE FINE NEEDLE ASPIRATION, #3. THYROID LEFT - US GUIDED LEFT THYROID NODULE FINE NEEDLE ASPIRATION CLINICAL HISTORY #1) 2.0 X 1.4 cm right mid pole thyroid nodule. #2) 2.5 x 1.9 x 1.9 cm right lower pole thyroid nodule. #3) 3.0 x 2.2 x 6.6 cm left thyroid nodule. IMMEDIATE INTERPRETATION 1) Pass 1-adequate. 2) Pass1 -adequate. 3) Pass 1-adequate. CONTINUED ON NEXT PAGE DEPARTMENT OF PATHOLOGY, [address] [place] [address] Zaire Le M.D. Director [facility] [facility] # [id number] GROSS DESCRIPTION #1) Ultrasound guided, fine needle aspiration x 1 pass with 3 alcohol fixed slide(s) and Needle rinse in CytoLyt solution for thin layer non-library services assistant test. #2) Ultrasound guided, fine needle aspiration x 1 pass with 4 alcohol fixed slide(s). #3) Ultrasound guided, fine needle aspiration x 1 pass with 3 alcohol fixed slide(s). Signed by and Reported on: Zaire Le MD [id number] END OF REPORT DEPARTMENT OF PATHOLOGY, [address] [place] [id number] Zaire Le M.D. Director [facility] # [id number] Procedures Description No Information Available Medical Devices Description No Information Available Encounters Type Date Location Provider Dx Diagnosis Office Visit 07/26/2019 [facility] Celi Yan, BASKET HAND BRAIDER R53.83 Other fatigue 9:30a [facility] E06.3 Autoimmune thyroiditis Office Visit 05/31/2019 10:00a [facility] Celi Yan, E06.9 Thyroiditis, Clinic [facility] BASKET HAND BRAIDER unspecified [facility] BASKET HAND BRAIDER D64.9 Anemia, unspecified E06.3 Autoimmune thyroiditis Office Visit 04/06/2019 8:57a [facility] J[facility] Peritonsillar [facility],ernie Kapoor MD abscess Hospitalists E04.2 Nontoxic multinodular goiter Office Visit 04/05/2019 [facility] J36 Peritonsillar 8:57a ernie Fuentes MD abscess Hospitalists Office Visit 04/04/2019 [facility] J36 Peritonsillar 8:56a Assernie mora MD abscess Hospitalists Office Visit 04/03/2019 [facility] J36 Peritonsillar 8:56a ernie Fuentes MD abscess Hospitalists Office Visit 04/03/2019 [facility] Coch, E04.2 Nontoxic 7:55a Endocrinology of multinodular goiter Edger Hand Office Visit 04/02/2019 [facility] Radha J36 Peritonsillar 8:56a Assernie mora M.D. abscess Hospitalists Assessments Date Code Description Provider 09/20/2019 E06.3 Autoimmune thyroiditis Celi Yan, BASKET HAND BRAIDER 07/26/2019 R53.83 Other fatigue Celi Yan, BASKET HAND BRAIDER 07/26/2019 E06.3 Autoimmune thyroiditis Celi Yan, BASKET HAND BRAIDER 05/31/2019 E06.9 Thyroiditis, unspecified Celi Yan, BASKET HAND BRAIDER 04/19/2019 R53.83 Other fatigue Celi Yan, BASKET HAND BRAIDER 04/19/2019 D64.9 Anemia, unspecified Celi Yan, BASKET HAND BRAIDER 04/19/2019 E06.3 Autoimmune thyroiditis Celi Yan, BASKET HAND BRAIDER 04/06/2019 J36 Peritonsillar abscess Coni Kapoor MD 04/06/2019 E04.2 Nontoxic multinodular goiter Coni Kapoor MD 04/05/2019 J36 Peritonsillar abscess Coni Kapoor MD 04/04/2019 J36 Peritonsillar abscess Coni Kapoor MD 04/03/2019 J36 Peritonsillar abscess Coni Kapoor MD 04/03/2019 E04.2 Nontoxic multinodular goiter Jose Conn MD 04/02/2019 J36 Peritonsillar abscess Radha Belcher M.D. Plan of Treatment Future Appointment(s):11/08/2019 9:00 am - Celi Yan NP at [facility]09/20/2019 - Celi Yan NPE06.3 Autoimmune thyroiditisFollow up:follow 6 weeks - 45 minuteRecommendations:Thyroid supplement for 1 bottle and see how you feel - if you think helping then we will test your iodine level and decide if you should continue or switch to another product. Selenium 200 mcg daily Continue nutrient rich diet - eliminate dairy, gluten Consider SIBO breath test based on reported symptoms Functional Status Description No Information Available Mental Status Description No Information Available Referrals Description No Information Available
--- OUTSIDE RECORDS SUMMARY | 2019-11-10 11:49 | XMS REPORT | Continuity of Care Document ---
:1985 External Reference #:[id number] Author Name Kathleen Somers PA-C Address [address] [place] [address] Care Team Providers Name Role Phone Eden Encinas M.D. RaMdhuri - Family Care Team Information Specialist Icu [phone] Medicine Problems Description No Information Available Social [...] a former smoker Unknown Smoking Status Reviewed: 11/04/19 Patient is a former smoker Allergies, Adverse Reactions, Alerts Description No Known Drug Allergies Medications Active Medications SIG Qnty Indications Ordering Provider Date Clindamycin HCL take 1 pill 3 42caps R22.1 Terry Knox 11/04/2019 300mg times a day for 2 MD Fernando Capsules weeks. Prednisone Take 1 pill in 6tabs R22.1 Terry Knox 11/04/2019 20mg Tablets the am for 4 MD Fernando days, then 1/2 pill for 4 days Vitamin as directed Unknown Vitamin B Complex 1 by mouth every Unknown day Tablets Vitamin D 1 by mouth every Unknown 1000Unit day Tablets Vitamin C Unknown W/Vitamin E [id number] Capsules Zinc 1 by mouth every Unknown 30mg Capsules day Immunizations Description No Information Available Vital Signs Date Vital Result Comment 11/04/2019 10:47am Body Temperature 99.1 F Weight 186.00 lb Weight 84.370 kg Height 74 inches 6'2" Height in cm's 188.0 cm BMI (Body Mass Index) 23.9 kg/m2 04/15/2019 11:23am Weight 205.00 lb Weight 92.988 kg Height 74 inches 6'2" Height in cm's 188.0 cm BMI (Body Mass Index) 26.3 kg/m2 Results Description No Information Available Procedures Description No Information Available Medical Devices Description No Information Available Encounters Type Date Location Provider Dx Diagnosis Office Visit 11/04/2019 [facility] Kathleen Somers, J36 Peritonsillar abscess 10:45a 09-11-2019 JOE R22.1 Localized swelling, mass and lump, neck Assessments Date Code Description Provider 11/04/2019 J36 Peritonsillar abscess Kathleen Somers PA-C 11/04/2019 R22.1 Localized swelling, mass and lump, neck Kathleen Somers PA-C Plan of Treatment Future Appointment(s):11/06/2019 8:45 am - Kathleen Somers PA-C at [facility] 2019 Functional Status Description No Information Available Mental Status Description No Information Available Referrals Description No Information Available
--- OUTSIDE RECORDS SUMMARY | 2019-11-10 11:49 | XMS REPORT | Continuity of Care Document ---
:1985 External Reference #:[id number] Author Name Kathleen Somers PA-C Address [address] [place] [address] Care Team Providers Name Role Phone Eden Encinas M.D. RMadhuri - Family Care Team Information Engineering Program Manager Medicine Problems Description No Information Available Social [...] day Tablets Vitamin C Unknown W/Vitamin E [id number] Capsules Zinc 1 by mouth every Unknown [...] Available Procedures Date Code Description Status 11/08/2019 98804 I&D Peritonsillar Abcess Completed 11/05/2019 24580 I&D Peritonsillar Abcess Completed 11/05/2019 55978 Fiberoptic Laryngoscopy Completed Medical Devices Description No [...] Kathleen Somers PA-C 11/05/2019 [facility] Peritonsillar abscess Kathelen Somers PA-C 11/05/2019 R22.1 Localized swelling, mass and lump, neck Kathleen Somers PA-C 11/04/2019 [facility] Peritonsillar abscess Kathleen Somers PA-C 11/04/2019 R22.1 Localized swelling, mass and lump, neck Kathleen Somers PA-C Plan of Treatment Future Appointment(s):11/11/2019 8:45 am - Kathleen Somers PA-C at [facility] /10/2019 - LU ArzateCJ36 Peritonsillar taspzugA89.1 Localized swelling, mass and lump, neck Functional Status Description No Information Available Mental Status Description No Information Available Referrals Description No Information Available
[2019-11-10] MEDS ORDERED: D5NS 0.9% 1000 ML BAG* 1,000 ML IV SCH (12:00)
[2019-11-10] MEDS ORDERED: Ketorolac INJ* 30 MG/ML 1 ML VIAL IV ONE (12:15)
--- NOTE | 2019-11-10 12:56 | ED ---
Throat Pain/Nasal Congestion - HPI Summary HPI Summary: This patient is a 34-year-old female presenting to the ED with a right sided peritonsillar abscess. She has been on clindamycin since Monday. She also had an I&D 2 days ago at ENT. 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 She states after her I and D, she felt better, however reports today she noted worsening swallowing and drooling. [place] as though she as unable to swallow FOOD TRUCK CATERER. No airway compromise per patient. She called ENT today who directed her to the ED. She states she felt she had airway compromise and had been drooling a lot. En route, patient states the area was spontaneously draining. Denies pain at this time. No fevers, sweats or chills. Decreased PO intake. - History of Current Complaint Chief Complaint: EDThroatPain Time Seen by Provider: 11/10/19 11:22 Hx Obtained From: Patient Onset/Duration: Gradual Onset Severity: Moderate Associated Signs And Symptoms: Positive: Dysphagia, Drooling. Negative: FB Sensation, Wheezing, Hoarseness, Sinus Discomfort, Nasal Discharge - Epiglottits Risk Factors Epiglottis Risk Factors: Drooling - Allergies/Home Medications Allergies/Adverse Reactions: Allergies Allergy/AdvReac Type Severity Reaction Status Date / Time No Known Drug Allergies Allergy Unknown Verified 04/22/19 08:24 Reaction Details Dairy Allergy Rash Uncoded 04/22/19 08:24 Home Medications: Home Medications 07/11/13 [History Confirmed 07/11/13] Ascorbic Acid TAB* [Vitamin C TAB*] 1,000 mg PO DAILY 04/22/19 [History Confirmed 04/22/19] Cholecalciferol (Vitamin D3) [Vitamin D3] 2,000 unit PO 04/22/19 [History] L.acidoph,Paracasei, B.lactis [Probiotic] 1 each PO 04/22/19 [History] Vitamin B Complex [Super B-50 Complex] 1 each PO 04/22/19 [History] Zinc Gluconate-Zinc Picolinate [Zinc] 30 mg PO 04/22/19 [History] PMH/Surg Hx/FS Hx/Imm Hx Previously Healthy: Yes Endocrine/Hematology History: Denies: Hx Diabetes Cardiovascular History: Denies: Hx Hypertension Sensory History: Reports: Hx Contacts or Glasses Denies: Hx Hearing Aid Opthamlomology History: Reports: Hx Contacts or Glasses - Immunization History Hx Pertussis Vaccination: No Immunizations Up to Date: Yes Infectious Disease History: No Infectious Disease History: Denies: Traveled Outside the [place] in Last 30 Days - Family History Known Family History: Positive: Hypertension - mother Family History: father with lung CA - Social History Occupation: Employed Full-time Lives: With Family Alcohol Use: Weekly Hx Substance Use: Yes Substance Use Type: Reports: Marijuana Substance Use Comment - Amount & Last Used: February 27, 2019 Hx Tobacco Use: Yes Smoking Status (MU): Former Smoker Amount Used/How Often: 09/2008 Have You Smoked in the Last Year: No Review of Systems Negative: Fever, Chills, Fatigue, Skin Diaphoresis Positive: Sore Throat. Negative: Ear Ache, Nasal Discharge Negative: Palpitations, Chest Pain Negative: Shortness Of Breath, Cough Negative: Arthralgia Skin: Negative Neurological/Mental Status: Negative All Other Systems Reviewed And Are Negative: Yes Physical Exam Triage Information Reviewed: Yes Vital Signs On Initial Exam: Initial Vitals Temp Pulse Resp BP Pulse Ox 98.7 F 92 14 132/85 98 11/10/19 11:12 11/10/19 11:12 11/10/19 11:12 11/10/19 11:12 11/10/19 11:12 Vital Signs Reviewed: Yes Appearance: Positive: Well-Appearing, Well-Nourished Skin: Positive: Warm, Skin Color Reflects Adequate Perfusion Head/Face: Positive: Normal Head/Face Inspection Eyes: Positive: EOMI, SUNG ENT: Positive: Muffled voice, Other - right peritonsillar swelling Neck: Positive: Supple, No Lymphadenopathy Respiratory/Lung Sounds: Positive: Clear to Auscultation, Breath Sounds Present Cardiovascular: Positive: RRR, Pulses are Symmetrical in both Upper and Lower Extremities Musculoskeletal: Positive: Normal, Strength/ROM Intact Neurological: Positive: Speech Normal Psychiatric: Positive: Normal, Affect/Mood Appropriate AVPU Assessment: Alert Procedures - Sedation Patient Received Moderate/Deep Sedation with Procedure: No Diagnostics - Vital Signs Vital Signs Temp Pulse Resp BP Pulse Ox 11/10/19 11:12 98.7 F 92 14 132/85 98 - Laboratory Lab Statement: Any lab studies that have been ordered have been reviewed, and results considered in the medical decision making process. EENT Course/Dx - Course Course Of Treatment: On physical examination, there is no evidence of airway obstruction. Pt is not anxious or ill appearing. No drooling, gagging or posturing noted. No hot potato voice, no trismus or spasms. On examination, there is a R sided peritonsillar fullness, soft palate bulging and erythema. Uvula has a deviation to the the L. No ear pain or neck swelling. Slight decreased oral intake per patient d/t discomfort. Has been taking clindamycin and prednisone. Patient is given IV clindamycin 600mg, 1L D5NS, 30ml IV Toradol and 10mg Decadron. Patient states en route, she felt the abscess drain and she was able to spit green thick foul tasting fluid out. She states her pain has decreased, but still feels fullness. Denies airway compromise. Patient feeling improved, likely secondary to the spontaneous drainage FOOD TRUCK CATERER. Will f/u with Dr. Rosales. - Diagnoses Provider Diagnoses: Peritonsillar abscess Discharge ED - Sign-Out/Discharge Documenting (check all that apply): Patient Departure - Discharge Plan Condition: Stable Disposition: HOME Patient Education Materials: Peritonsillar Abscess (ED) Referrals: Ermias Rosales MD [Medical Doctor] - Eden Ac MD [Primary Care Provider] - Additional Instructions: Please follow up as planned - Billing Disposition and Condition Condition: STABLE Disposition: Home - Attestation Statements Provider Attestation: I was available for consult. This patient was seen by the SARI. The patient was not presented to, seen by, or examined by me. Javier Maria MD
[2019-11-10 14:09] VITALS: BP 102/69
== END 2019-11-10 14:08 | disposition home or self-care (01) ==
LOC: ED 10:57
DX: J36 Peritonsillar abscess (principal); Z87.891 Personal history of nicotine dependence
CPT/HCPCS: 96365; 96366; 96368; 96375; 99282; J1100; J1885

== ENCOUNTER 2019-11-13 13:48 | Day surgery (SDC) | payer OTHER ==
[~2019-11-13 13:48] MED LIST: Acetaminophen TAB* 325 MG PO ONE; Buffered Lidocaine 1% SYRIN* 1 ML/SYRINGE INTRADERM ONE; HYDROmorphone INJ1* 1 MG/ML SYRINGE IV PRN; Lactated Ringers 1000 ML Bag* 1,000 ML IV SCH; Naloxone* 0.4 MG/ML 1 ML VIAL IV PRN; PROCHLORPERAZINE INJ 5 MG/ML 2 ML VIAL IV PRN; diPHENhydraMINE IV* 50 MG/ML 1 ml VIAL (BENADRYL) IV PRN; oxyCODONE TAB* 5 MG TAB PO PRN
[2019-11-13] MEDS ORDERED: Acetaminophen TAB* 325 MG ONE (14:17)
[2019-11-13] MEDS ORDERED: Buffered Lidocaine 1% SYRIN* 1 ML/SYRINGE INTRADERM ONE (14:17)
[2019-11-13] MEDS ORDERED: Dexamethasone IV* 4 MG/ML 1 ML (4 MG) IV SLOW PU ONE (15:49)
[2019-11-13] MEDS ORDERED: Famotidine IV* 10 MG/ML 2 ML (20 mg) IV ONE (15:50)
[2019-11-13] MEDS ORDERED: Famotidine IV* 10 MG/ML 2 ML (20 mg) ONE (15:50)
[2019-11-13] MEDS ORDERED: Dexamethasone IV* 4 MG/ML 1 ML (4 MG) ONE (15:50)
[2019-11-13] MEDS ORDERED: fentaNYL* 50 MCG/ML 2 ML VIAL (100 MCG VIAL) ONE ×2 (16:21→17:16)
[2019-11-13] MEDS ORDERED: Propofol* 10 MG/ML 20 ML BTL ONE (16:22)
[2019-11-13] MEDS ORDERED: Lidocaine 2% PF * 5 ML VIAL ONE (16:26)
[2019-11-13] MEDS ORDERED: Ondansetron INJ* 2 MG/ML VIAL ONE (17:02)
[2019-11-13] MEDS ORDERED: Neostigmine Methylsulfate* 3 MG/3 ML SYRINGE ONE (17:20)
[2019-11-13] MEDS ORDERED: Glycopyrrolate IV* 0.2 MG/ML 1 ML VIAL ONE (17:20)
[2019-11-13] MEDS ORDERED: HYDROcodone/ACET. 7.5/325 LIQ* 15 ML UDC ONE (18:36)
[2019-11-13 20:01] VITALS: BP 123/82
--- NOTE | 2019-11-14 03:20 | OP ---
OPERATIVE REPORT: DATE OF OPERATION: 11/13/19 - SDS DATE OF : 81 SURGEON: Ermias Rosales MD PRE-OP DIAGNOSIS: Recurring peritonsillar abscess. POST-OP DIAGNOSIS: Recurring peritonsillar abscess. OPERATIVE PROCEDURE: Tonsillectomy. BRIEF HISTORY: This 34-year-old female with history of recurring abscess and more recently 2 bouts of [id number] abscesses not resolving with medical management. DESCRIPTION OF PROCEDURE: The patient was taken to the operating room where under general anesthetic, the patient was intubated. Tongue, mandible, and soft palate were retracted. Coblator was used to remove the tonsils. There was a large abscess pocket extending into and through the pharyngeal musculature into the deep neck. This was drained of its abscess contents. Cauterization was carried out and suturing of the defect was attempted with chromic. This was on the right side. On the left side, there was extensive scarring of the tonsil but this was easily removed in the tonsil plane. Hemostasis was obtained. The patient was awakened, extubated, and sent to recovery room in stable condition. Instrument, sponge counts correct. Blood loss was approximately 100 cc. [id number]/[facility] #: [id number] [facility]
== END 2019-11-13 20:00 | disposition home or self-care (01) ==
LOC: OR 13:48
PROVIDERS: ATTEND Otolaryngology
DX: J36 Peritonsillar abscess (principal); R22.1 Localized swelling, mass and lump, neck; Z87.891 Personal history of nicotine dependence; E06.3 Autoimmune thyroiditis; E04.1 Nontoxic single thyroid nodule
CPT/HCPCS: 81025; 88304; A9270-GY; J1100; J2405; J2704; J2710; J3010